=== PATIENT | male | born 1975 | race Caucasian/White ===

== ENCOUNTER 2016-07-10 11:36 | Emergency (ER) | payer OTHER ==
[~2016-07-10] VITALS: Ht 182.9 cm; Wt 82.6 kg
[~2016-07-10 11:36] MED LIST: INSDGI SC; LSN25 PO; METF-384 PO; NRN400 PO; SIMV-151 PO; ZLF/100 PO
[2016-07-10 11:40] VITALS: BP 129/83; PULSE 96; TEMP 36.7; O2SAT 97; Ht 182.9 cm; Wt 82.6 kg
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
== END 2016-07-10 13:07 | disposition home or self-care (01) ==
LOC: C.EDB 11:37 → C.EDD 13:07
DX: T20.012A Burn of unspecified degree of left ear [any part, except ear drum], initial encounter (principal); X58.XXXA Exposure to other specified factors, initial encounter; I10 Essential (primary) hypertension; E11.9 Type 2 diabetes mellitus without complications; E78.00 Pure hypercholesterolemia, unspecified; F17.200 Nicotine dependence, unspecified, uncomplicated; J45.909 Unspecified asthma, uncomplicated; Z87.442 Personal history of urinary calculi; Z79.4 Long term (current) use of insulin; Z79.84 Long term (current) use of oral hypoglycemic drugs; Z79.899 Other long term (current) drug therapy; Z83.3 Family history of diabetes mellitus; Z82.49 Family history of ischemic heart disease and other diseases of the circulatory system; Z84.1 Family history of disorders of kidney and ureter

== ENCOUNTER 2016-12-16 08:47 | Emergency (ER) | payer OTHER ==
[~2016-12-16] VITALS: Ht 182.9 cm; Wt 75.7 kg
[2016-12-16 08:59] VITALS: TEMP 36.6; Ht 182.9 cm; Wt 75.7 kg
[2016-12-16] MEDS ORDERED: DICLOFENAC PO (09:21)
[2016-12-16] MEDS ORDERED: CYM/30 PO (09:21)
[2016-12-16] MEDS ORDERED: PROPARACAINE HCL 0.5% OP SOLN 15 ML BTL ONE (09:29)
[2016-12-16] MEDS ORDERED: CIPR0.3S OP (09:40)
--- NOTE | 2016-12-16 09:41 | EMERGENCY ROOM VISIT NOTE ---
ED Visit Note First contact with patient: 09:23 CHIEF COMPLAINT: Eye injury HISTORY OF PRESENT ILLNESS: This patient sustained an eye injury today when he woke Middle of the night and scratched his eye and since then has had a foreign body sensation. Since then there has been a constant moderate pain and irritation, redness and tearing in the eye. There is a mild blurring of vision at times and light bothers the eye. The vision has not been decreased over all. REVIEW OF SYSTEMS: Head: No headache, injury or neck pain. Neck: No pain, stiffness, or swelling. Neurological: No headache, new changes in mental status, vertigo, focal weakness, numbness. PMH: The patient has a history of diabetes and uses insulin. SOCIAL HISTORY: Patient lives at home. PHYSICAL EXAM: Vital Signs: Reviewed Nurse's notes. GENERAL: This is a healthy- appearing person who is uncomfortable from the eye problem. The pupils are round, equal, and react to light. EOMs are full. There is discharge of clear tears from the injured eye which is injected. There is a foreign body noted under the eyelid after inversion and it was easily removed with a cotton swab . No foreign body was seen embedded in the cornea. The cornea was clear and no hyphema was seen. Fluorescein uptake was observed with ultraviolet light and reveals very superficial punctate uptake but no significant abrasion. I did remove a foreign body from beneath the eyelid. I also removed what appeared to be a cat hair from the eye. The patient stated his symptoms resolved after these foreign bodies were removed. There is a very superficial punctate uptake of the fluorescein and he'll be placed on Ciloxan drops to help prevent infection. He should return to the ER with any worsening symptoms. Otherwise, he should recheck with his family doctor or eye doctor in 24 hours. Current/Historical Medications Scheduled Ciprofloxacin Hcl (Ophth) (Ciloxan Oph), 1 DROP OP Q4H Duloxetine HCl (Cymbalta), 30 MG PO DAILY Gabapentin (Gabapentin), 400 MG PO TID Insulin Glargine (Lantus), 45 UNITS SC QAM Lisinopril (Lisinopril), 2.5 MG PO DAILY Metformin Hcl (Glucophage), 1,000 MG PO BID Sertraline HCl (Sertraline HCl), 100 MG PO DAILY Simvastatin (Simvastatin), 20 MG PO QPM [Diclofenac], 1 TAB PO BID Allergies Coded Allergies: No Known Allergies (Unverified , 12/16/16) Vital Signs Date Time Temp Pulse Resp B/P (MAP) Pulse Ox O2 Delivery O2 Flow Rate FiO2 12/16/16 10:19 73 16 109/71 100 12/16/16 08:59 36.6 81 18 99/68 99 Room Air Departure Information Impression Primary Impression: Foreign body in eye Additional Impression: Corneal abrasion Dispostion Home / Self-Care Condition GOOD Prescriptions Ciprofloxacin Hcl (Ophth) (CILOXAN OPH) 0.3 % Carmen 1 DROP OP Q4H for 5 Days, #1 BTL Prov: Susanna Orellana PA-C 12/16/16 Referrals Harriet Conner D.O. (PCP) Tremayne Ramos M.D. Forms WORK / SCHOOL INSTRUCTIONS, HOME CARE DOCUMENTATION FORM, IMPORTANT VISIT INFORMATION Patient Instructions ED Eye Injury Corneal Abrasion, [facility] Additional Instructions Use Ciloxan two drops in eye every two hours while awake for two days; then two drops every four hours while awake for three days. Use Ibuprofen 600 mg every 6 hours as needed for pain. Return to the ED or see your family doctor or eye doctor in 24-48 hours for a recheck. Return to the ED for increasing pain or changes in vision. Problem Qualifiers Primary Impression: Foreign body in eye Encounter type: initial encounter Laterality: right Qualified Codes: T15.91XA - Foreign body on external eye, part unspecified, right eye, initial encounter Additional Impression: Corneal abrasion Encounter type: initial encounter Laterality: right Qualified Codes: S05.01XA - Injury of conjunctiva and corneal abrasion without foreign body, right eye, initial encounter
[2016-12-16 10:19] VITALS: BP 109/71; PULSE 73; O2SAT 100
== END 2016-12-16 10:20 | disposition home or self-care (01) ==
LOC: C.EDB 08:48
DX: T15.91XA Foreign body on external eye, part unspecified, right eye, initial encounter (principal); S05.01XA Injury of conjunctiva and corneal abrasion without foreign body, right eye, initial encounter; X58.XXXA Exposure to other specified factors, initial encounter; E11.9 Type 2 diabetes mellitus without complications; Z79.4 Long term (current) use of insulin; Z79.84 Long term (current) use of oral hypoglycemic drugs

== ENCOUNTER 2016-12-21 16:04 | Emergency (ER) | payer OTHER ==
[~2016-12-21] VITALS: Ht 182.9 cm; Wt 77.0 kg
[~2016-12-21 16:04] MED LIST changes: +CIPR0.3S OP; +CYM/30 PO; +DICLOFENAC PO
[2016-12-21 16:14] VITALS: TEMP 36.9; Ht 182.9 cm; Wt 77.0 kg
[2016-12-21] MEDS ORDERED: XYLOCAINE 1%/SOD BICARB 20 ML VIAL INFIL ONE (16:30)
--- NOTE | 2016-12-21 16:41 | EMERGENCY ROOM VISIT NOTE ---
ED Visit Note First contact with patient: 16:24 CHIEF COMPLAINT: Infection of the low back HISTORY OF PRESENT ILLNESS: This 41-year-old male patient presents to the emergency department ambulatory after they noticed a hard, red, tender area to the low back. It is slowly getting larger, more painful and tender. No fever, chills, or loss of appetite. There has been drainage from the area. There was no injury to the area preceding the infection. They rate the pain as sharp and 3/10. Tetanus shot is up to date. They have tried squeezing the area. The patient is a diabetic. The patient has no history of subcutaneous abscesses. REVIEW OF SYSTEMS: A 6 system review of systems was completed with positives and pertinent negatives listed in the HPI. ALLERGIES: No known drug allergies MEDICATIONS: See nursing notes PMH: Diabetes, SOCIAL HISTORY: The patient lives locally. He is a smoker PHYSICAL EXAM: Vital Signs: Reviewed Nurse's notes, vital signs stable. GENERAL : 41-year-old male, no acute distress, non toxic in appearance, well-developed well-nourished. SKIN: There is an erythematous indurated area to the low back which measures about 1 cm in diameter. It is not fluctuant and there is a scabbed area in the center. There is a zone of inflammation around it but no lymphangitis. Capillary refill less than 2 seconds. MUSCULOSKELETAL: There is no limitation of the range of motion of the legs. EMERGENCY DEPARTMENT COURSE: I examined the patient. After saline and Betadine cleansing and 3 mL of 1% buffered lidocaine anesthesia, the abscess was incised with a number 15 scalpel blade. The scab area was removed. A very small pustule and a small amount of purulent material was removed with pressure. A swab was obtained for culture. There was no deep abscess pocket. The area was cleaned with sterile saline and dressed with bacitracin and a bulky bandage. The patient tolerated the procedure well. The patient has an open area to the skin of the low back. There was a narcotic and scabbed area in the center. This could potentially represent a MRSA skin infection. Less likely it could represent a brown recluse spider bite or potentially the area of a tick bite. The patient will be placed on doxycycline and Keflex. He should have the area rechecked in 24-48 hours. He should return with any worsening redness, swelling, warmth, drainage or worsening area of necrosis. The patient was discharged home in stable condition. Current/Historical Medications Scheduled Cephalexin Monohydrate (Keflex), 500 MG PO TID Ciprofloxacin Hcl (Ophth) (Ciloxan Oph), 1 DROP OP Q4H Doxycycline (Monohydrate) (Doxycycline Monohydrate), 100 MG PO BID Duloxetine HCl (Cymbalta), 30 MG PO DAILY Gabapentin (Gabapentin), 400 MG PO TID Insulin Glargine (Lantus), 45 UNITS SC QAM Lisinopril (Lisinopril), 2.5 MG PO DAILY Metformin Hcl (Glucophage), 1,000 MG PO BID Sertraline HCl (Sertraline HCl), 100 MG PO DAILY Simvastatin (Simvastatin), 20 MG PO QPM [Diclofenac], 1 TAB PO BID Allergies Coded Allergies: No Known Allergies (Unverified , 12/21/16) Vital Signs Date Time Temp Pulse Resp B/P (MAP) Pulse Ox O2 Delivery O2 Flow Rate FiO2 12/21/16 17:35 88 17 121/63 96 12/21/16 16:14 36.9 92 18 117/73 98 Room Air Medications Administered Medications (Trade) Dose Ordered Sig/Gail Route Start Time Stop Time Status Last Admin Dose Admin Lidocaine HCl (Buffered Lidocaine 1% Inj) 20 ml NOW ONCE INFIL 12/21/16 16:30 12/21/16 16:31 DC 12/21/16 16:30 20 ML Departure Information Impression Primary Impression: Abscess Dispostion Home / Self-Care Condition GOOD Prescriptions Cephalexin Monohydrate (Keflex) 500 Mg Cap 500 MG PO TID for 10 Days, #30 CAP Prov: Susanna Orellana PA-C 12/21/16 Doxycycline (Monohydrate) (DOXYCYCLINE MONOHYDRATE) 100 Mg Tab 100 MG PO BID for 10 Days, #20 CAP Prov: Susanna Orellana PA-C 12/21/16 Referrals Harriet Conner D.O. (PCP) Patient Instructions Drainage Abscess, My [facility] Additional Instructions Keep the area clean and dry Antibiotics as prescribed until finished Return with worsening redness, swelling, worsening necrosis or generalized worsening symptoms. Otherwise, follow up with your family doctor in 24-48 hours for a recheck.
[2016-12-21] MEDS ORDERED: DOXY100T17 PO (17:21)
[2016-12-21] MEDS ORDERED: CEPH500C PO (17:21)
[2016-12-21 17:35] VITALS: BP 121/63; PULSE 88; O2SAT 96
== END 2016-12-21 17:42 | disposition home or self-care (01) ==
LOC: C.EDB 16:05 → C.EDD 17:42
DX: L02.212 Cutaneous abscess of back [any part, except buttock and flank] (principal); E11.9 Type 2 diabetes mellitus without complications; F17.200 Nicotine dependence, unspecified, uncomplicated; Z79.4 Long term (current) use of insulin; Z79.84 Long term (current) use of oral hypoglycemic drugs; Z79.899 Other long term (current) drug therapy

== ENCOUNTER 2017-07-28 16:38 | Emergency (ER) | payer OTHER ==
[~2017-07-28] VITALS: Ht 182.9 cm; Wt 76.2 kg
[~2017-07-28 16:38] MED LIST changes: -CIPR0.3S OP; +DOXY100T17 PO
[2017-07-28 16:55] VITALS: TEMP 36.8; Ht 182.9 cm; Wt 76.2 kg
[2017-07-28] MEDS ORDERED: XYLOCAINE 1%/SOD BICARB 20 ML VIAL INFIL ONE (17:15)
[2017-07-28] MEDS ORDERED: DICL1TAB5 PO (17:22)
[2017-07-28] MEDS ORDERED: TRAZ50TA35 PO (17:22)
--- NOTE | 2017-07-28 18:12 | DIAGNOSTIC IMAGING REPORT ---
R HAND MIN 3 VIEWS ROUTINE HISTORY: 41 years-old Male right hand injury, laceration acute right hand pain status post trauma COMPARISON: None available TECHNIQUE: 3 views of the right hand FINDINGS: There is no acute fracture, subluxation or significant degenerative changes identified. No opaque foreign body identified. IMPRESSION: 1. No acute fracture or subluxation. 2. No opaque foreign body. The above report was generated using voice recognition software. It may contain grammatical, syntax or spelling errors. Electronically signed by: David Gibbs M.D. 07/28/2017 6:10 PM Dictated Date/Time: 07/28/2017 6:08 PM
[2017-07-28] MEDS ORDERED: ACETAMINOPHEN 500 MG TAB PO STA (18:18)
[2017-07-28] MEDS ORDERED: CEPH500C PO (19:11)
--- NOTE | 2017-07-28 19:12 | EMERGENCY ROOM VISIT NOTE ---
ED Visit Note First contact with patient: 16:59 CHIEF COMPLAINT: Hand laceration HISTORY OF PRESENT ILLNESS: This 41-year-old male patient presents to the emergency department ambulatory after cutting the right hand while using a table saw today. The patient states that the saw kicked back and cut his hand. The bleeding has stopped. Denies weakness or numbness of the hand or fingers. The patient rates the pain as sharp and and 9/10. The patient denies any other injuries. The patient's Tetanus shot is up to date. REVIEW OF SYSTEMS: A 6 system review of systems was completed with positives and pertinent negatives listed in the HPI. ALLERGIES: No known drug allergies MEDICATIONS: See med list PMH: Diabetes, hyperlipidemia, hypertension SOCIAL HISTORY: The patient lives locally with family. He is a smoker. PHYSICAL EXAM: Vital Signs: Reviewed Nurse's notes, vital signs stable. GENERAL : This is a 41-year-old male, in no acute distress, well-developed, well- nourished. SKIN: There is a 4 cm long Y-shaped laceration on the palmar aspect of the right hand, just proximal to the thumb. The edges gape apart with traction. There is no foreign material in the wound and it looks clean. There is no active bleeding. No deep structures such as tendons, bones, or significant blood vessels are seen in the base of the wound. There is a small skin tear to the dorsal aspect of the right third finger. Normal strength and movement of the fingers and wrist. Capillary refill less than 2 seconds. Normal sensation to light and sharp touch. RADIOGRAPHIC FINDINGS: R HAND MIN 3 VIEWS ROUTINE HISTORY: 41 years-old Male right hand injury, laceration acute right hand pain status post trauma COMPARISON: None available TECHNIQUE: 3 views of the right hand FINDINGS: There is no acute fracture, subluxation or significant degenerative changes identified. No opaque foreign body identified. IMPRESSION: 1. No acute fracture or subluxation. 2. No opaque foreign body. EMERGENCY DEPARTMENT COURSE: I examined the patient. X-ray of the hand was obtained and read by radiology with no acute findings. Verbal consent was obtained to perform the procedure. Using sterile technique the wound was cleansed with Betadine. The area was sterilely draped. 4 ml of 1% buffered lidocaine was used to anesthetize the laceration on the hand. Once the patient was anesthetized, the wound was copiously irrigated under pressure with sterile saline. The wound was explored and was as described above. The laceration was repaired using 9 simple interrupted 4-0 nylon sutures with the wound edges being well approximated. The patient tolerated the procedure well. Hemostasis was achieved. The area was cleaned with sterile saline and dressed with bacitracin ointment and bandage. A metal finger splint was placed on the finger. The patient will be placed on antibiotics to prevent infection. The patient was discharged home in good condition. DIAGNOSIS: Hand laceration Current/Historical Medications Scheduled Cephalexin Monohydrate (Keflex), 500 MG PO TID Diclofenac (Voltaren ), 25 MG PO BID Duloxetine HCl (Cymbalta), 60 MG PO DAILY Gabapentin (Gabapentin), 400 MG PO TID Insulin Glargine (Lantus), 40 UNITS SC HS Lisinopril (Lisinopril), 2.5 MG PO DAILY Metformin Hcl (Glucophage), 1,000 MG PO BID Simvastatin (Simvastatin), 20 MG PO QPM Trazodone Hcl (Trazodone), 50 MG PO HS Allergies Coded Allergies: No Known Allergies (Unverified , 07/28/17) Vital Signs Date Time Temp Pulse Resp B/P (MAP) Pulse Ox O2 Delivery O2 Flow Rate FiO2 07/28/17 19:34 78 18 109/76 99 07/28/17 16:55 36.8 87 20 122/79 99 Room Air Medications Administered Medications (Trade) Dose Ordered Sig/Gail Route Start Time Stop Time Status Last Admin Dose Admin Acetaminophen (Tylenol Tab) 1,000 mg NOW STAT PO 07/28/17 18:18 07/28/17 18:19 DC 07/28/17 18:24 1,000 MG Departure Information Impression Primary Impression: Laceration of hand Dispostion Home / Self-Care Condition GOOD Prescriptions Cephalexin Monohydrate (Keflex) 500 Mg Cap 500 MG PO TID for 7 Days, #21 CAP Prov: Jenny Jara PA-C 07/28/17 Referrals Harriet Conner,[place] (PCP) Patient Instructions My [facility] Additional Instructions You have received 9 sutures on your hand. These sutures are NOT dissolvable and WILL need to be removed by a health care provider in 12-14 days. You can return to the Emergency Department or contact your Primary Care Provider to have the sutures removed. You were prescribed Keflex to be taken as prescribed. This is an antibiotic. All antibiotics have the potential to cause diarrhea. Stop this medication and contact a medical provider if you were to develop any significant adverse side effects including: wheezing, shortness of breath, passing out, vomiting, or a diffuse rash. Always take antibiotics as directed and COMPLETE the ENTIRE course regardless of the improvement of your symptoms. Proper wound care is essential for adequate wound healing and infection prevention. You can shower and clean the wound with soap and water. Do not scour over the wound, pat dry with a towel. Do not submerse the wound (i.e. bathe or dish wash) until the sutures have been removed. You can use an antibiotic ointment with a dressing over the wound for the next 3-4 days. After this time you may leave the wound dry and open to the air. If crust develops over the wound you can use a Q-tip to apply a 1:1 peroxide:water solution to clean the wound. Look for signs of infection of the wound including: increased pain, swelling, foul discharge, streaking, or increased temperature. If any of these are noticed you should return to the Emergency Department for further assessment and treatment. As with any laceration you may have received nerve damage to the surrounding tissues. This damage may or may not be permanent. You should keep the area covered with sunscreen for the first 6 months to 1 year when at risk for exposure to help minimize scarring. You can also use scar reducing creams or Vitamin E oil to help minimize scarring. For pain control, you can use the following [id number] medicines (if >12 yo): - Regular strength (325mg/tab) Tylenol (acetaminophen) 2 tabs every 4-6 hours as needed. Do not exceed 12 tablets in a 24 hour period. Avoid taking more than 4 grams (4000 mg) of Tylenol per day. This includes any other sources of acetaminophen you may take on a regular basis. - Regular strength (200 mg/tab) Advil (ibuprofen) 1-2 tabs every 4-6 hours as needed. Do not exceed a dose of 3200 mg per day. Return to the emergency department if your symptoms worsen despite treatment course outlined above. Problem Qualifiers Primary Impression: Laceration of hand Encounter type: initial encounter Foreign body presence: without foreign body Laterality: right Qualified Codes: S61.411A - Laceration without foreign body of right hand, initial encounter
[2017-07-28 19:34] VITALS: BP 109/76; PULSE 78; O2SAT 99
== END 2017-07-28 19:30 | disposition home or self-care (01) ==
LOC: C.EDB 16:39 → C.EDD 19:30
DX: S61.411A Laceration without foreign body of right hand, initial encounter (principal); W31.2XXA Contact with powered woodworking and forming machines, initial encounter; E11.9 Type 2 diabetes mellitus without complications; I10 Essential (primary) hypertension; E78.5 Hyperlipidemia, unspecified; Z79.4 Long term (current) use of insulin; Z79.84 Long term (current) use of oral hypoglycemic drugs

== ENCOUNTER 2017-11-15 09:49 | Emergency (ER) | payer OTHER ==
[~2017-11-15] VITALS: Ht 182.9 cm; Wt 74.1 kg
[~2017-11-15 09:49] MED LIST changes: +DICL1TAB5 PO; -DICLOFENAC PO; -DOXY100T17 PO; +TRAZ50TA35 PO; -ZLF/100 PO
[2017-11-15 09:51] VITALS: TEMP 36.8; Ht 182.9 cm; Wt 74.1 kg
[2017-11-15] MEDS ORDERED: [UNRECOGNIZED DRUG - CODE] PO (10:15)
[2017-11-15] MEDS ORDERED: LPT40 PO (10:15)
[2017-11-15] MEDS ORDERED: CYM60 PO (10:15)
[2017-11-15] MEDS ORDERED: NRN600 PO (10:15)
--- NOTE | 2017-11-15 11:31 | DIAGNOSTIC IMAGING REPORT ---
CT SCAN OF THE CERVICAL SPINE CLINICAL HISTORY: Head injury. COMPARISON STUDY: No priors. TECHNIQUE: CT scan of the cervical spine is performed from the skull base to the upper thoracic spine. Images are reviewed in the axial, sagittal, and coronal planes. IV contrast was not administered for this examination. A dose lowering technique was utilized adhering to the principles of ALARA. CT DOSE: 1210.99 mGycm FINDINGS: Skeletal structures: The skeletal structures are well mineralized. There is no evidence of fracture or subluxation involving the cervical spine. There is incomplete bony fusion of the posterior ring of C1, likely on a congenital basis. Vertebral body height and alignment are maintained. Anterior osteophytes are seen in the lower cervical region. There is straightening of the cervical lordosis. The odontoid process and lateral masses are intact. The atlantoaxial articulation is preserved noting productive degenerative change. The spinous processes appear intact. Intervertebral discs: There is mild disc space narrowing at C5-C6 and C6-C7. Central canal: Tiny posterior disc osteophyte complexes at C5-C6 and C6-C7 may contribute to mild acquired compromise of the central canal. Soft tissues: The prevertebral and paraspinous soft tissues are within normal limits. Calvarium: The visualized calvarium at the skull base appears intact. Brain parenchyma: Partially visualized brain parenchyma the skull base is within normal limits. Mastoids: The mastoid air cells are well pneumatized. Lung apices: Clear as visualized. IMPRESSION: There is no evidence of fracture or subluxation involving the cervical spine. Electronically signed by: Esdras Auguste M.D. 11/15/2017 11:30 AM Dictated Date/Time: 11/15/2017 11:27 AM
--- NOTE | 2017-11-15 11:33 | DIAGNOSTIC IMAGING REPORT ---
CT SCAN OF THE BRAIN WITHOUT IV CONTRAST CLINICAL HISTORY: Head injury. COMPARISON STUDY: No priors. TECHNIQUE: Unenhanced axial CT scan of the brain is performed from the vertex to the skull base. A dose lowering technique was utilized adhering to the principles of ALARA. FINDINGS: Brain parenchyma: The brain parenchyma is normal in appearance. There is no hemorrhage, mass effect, or evidence of acute territorial ischemia by CT criteria. Davenport-white matter is preserved. No extra-axial fluid collection is seen. Ventricles, sulci, cisterns: Normal in configuration. Intracranial vasculature: The visualized intracranial vasculature at the skull base is normal in appearance. Calvarium: There is no depressed calvarial fracture. Sinuses and mastoids: Mucosal thickening/retention cysts are noted in the maxillary antra. The remaining paranasal sinuses are clear. The mastoid air cells are well pneumatized. Orbits: The bony orbits are grossly intact. IMPRESSION: No acute intracranial abnormality. Electronically signed by: Esdras Auguste M.D. 11/15/2017 11:32 AM Dictated Date/Time: 11/15/2017 11:30 AM
--- NOTE | 2017-11-15 11:40 | DIAGNOSTIC IMAGING REPORT ---
LUMBAR SPINE 5 VIEWS CLINICAL HISTORY: Fall. Low back pain. FINDINGS: 5 views of the lumbar spine are correlated with CT scan of the lumbar spine dated 04/21/2016. The skeletal structures are well mineralized. There is no radiographic evidence of fracture or malalignment. Vertebral body height and alignment are maintained. The transverse and spinous processes are intact. There is no evidence of spondylolysis. The intervertebral disc spaces are well-maintained. The visualized bony pelvis appears intact. There is a nonobstructed abdominal bowel gas pattern. Moderate colonic fecal retention is observed. There is a nonobstructing right renal calculus. IMPRESSION: 1. There is no radiographic evidence of fracture or malalignment involving the lumbosacral spine. 2. Nonobstructing right renal calculus. Electronically signed by: Esdras Auguste M.D. 11/15/2017 11:39 AM Dictated Date/Time: 11/15/2017 11:38 AM
--- NOTE | 2017-11-15 12:18 | EMERGENCY ROOM VISIT NOTE ---
History First contact with patient: 10:00 Chief Complaint: BACK PAIN Stated Complaint: SHARP PAIN IN LOWER BACK FROM FALL,HEADACHE,NECK P History of Present Illness The patient is a 42 year old male who presents to the Emergency Room with complaints of a right-sided headache, neck pain and lower back pain. The patient reports that he was walking through his yard last night and experienced sudden onset of low back pain. The patient reports a history of back problems. The patient reports that the pain made him fall. The patient then recalls trying to get up and had significant discomfort. He then went to a picnic table and lay down on the picnic table to rest. The patient reports that he fell asleep, and woke up cold. He then went to the garage and fell asleep in the garage. The patient reports that his memory of last evening is a little foggy. His is concerned that he hit his head. The patient denies any illicit drug or alcohol use last night. The patient rates his headache a 7 out of 10. He rates his back pain a 5 out of 10. The patient reports pain radiating into the right thigh, which is typical with his back pain. He denies any paresthesias or numbness of the right lower extremity. He also denies any upper back pain, chest pain, shortness of breath, nausea, vomiting, visual disturbance or other injuries from his fall. Review of Systems 10 system review was performed and was negative except for pertinent positives and negatives as indicated in history of present illness Past Medical/Surgical History Medical Problems: (1) Calculus Of Kidney (2) Diab Batsheva Wo Compl, Type Ii Or Unspec Type, Not Uncntrld (3) Hypertension Nos (4) Pure Hypercholesterolem (5) Tobacco Use Disorder Family History Diabetes mellitus Heart disease Social History Smoking Status: Current Every Day Smoker Alcohol Use: occasionally Drug Use: none Marital Status: Housing Status: lives with family Occupation Status: unemployed Current/Historical Medications Scheduled Aspirin (Sm Aspirin Adult Low Stre), 81 MG PO DAILY Atorvastatin (Lipitor), 40 MG PO DAILY Diclofenac (Voltaren ), 25 MG PO BID Duloxetine HCl (Duloxetine HCl), 60 MG PO DAILY Gabapentin (Gabapentin), 600 MG PO TID Insulin Glargine (Lantus), 40 UNITS SC HS Lisinopril (Lisinopril), 2.5 MG PO DAILY Metformin Hcl (Glucophage), 1,000 MG PO BID Trazodone Hcl (Trazodone), 50 MG PO HS Physical Exam Vital Signs Date Time Temp Pulse Resp B/P (MAP) Pulse Ox O2 Delivery O2 Flow Rate FiO2 11/15/17 09:51 36.8 99 20 112/70 100 Room Air Physical Exam CONSTITUTIONAL: Healthy and well nourished. Alert and oriented X 3 with positive affect. GCS 15. HEENT: Normocephalic, atraumatic. Pupils equal, round and reactive. No hematoma, abrasions or lacerations. No subconjunctival hemorrhage, epistaxis, hemotympanum, raccoon's eyes or montez sign. OROPHARYNX: No dental trauma or intraoral lacerations. NECK: Patient has mild generalized discomfort to palpation of the neck. No focal tenderness of the central cervical spine. RESPIRATORY: Clear to auscultation bilaterally with no wheezing, crackles, rhonchi or stridor. CARDIOVASCULAR: Regular rate and rhythm with no murmurs, rubs or gallops. GASTROINTESTINAL: Bowel sounds present in all quadrants. Soft and nontender to palpation. MUSCULOSKELETAL: Examination shows mild generalized discomfort to palpation through the lower back. Pelvis stable with rock. Negative logroll. Negative straight leg raise. Pedal pulses are intact. INTEGUMENTARY: No rash or other significant dermatologic conditions noted. NEUROLOGIC: Cranial nerves II-XII grossly intact. No focal neurologic deficits noted. Negative pronator drift. Normal fast alternating hand movements. Medical Decision & Procedures ER Provider Diagnostic Interpretation: Noncontrast CT of the cervical spine does not show any acute fractures or subluxations. Radiologist reports were reviewed: CT SCAN OF THE CERVICAL SPINE CLINICAL HISTORY: Head injury. COMPARISON STUDY: No priors. TECHNIQUE: CT scan of the cervical spine is performed from the skull base to the upper thoracic spine. Images are reviewed in the axial, sagittal, and coronal planes. IV contrast was not administered for this examination. A dose lowering technique was utilized adhering to the principles of ALARA. CT DOSE: 1210.99 mGycm FINDINGS: Skeletal structures: The skeletal structures are well mineralized. There is no evidence of fracture or subluxation involving the cervical spine. There is incomplete bony fusion of the posterior ring of C1, likely on a congenital basis. Vertebral body height and alignment are maintained. Anterior osteophytes are seen in the lower cervical region. There is straightening of the cervical lordosis. The odontoid process and lateral masses are intact. The atlantoaxial articulation is preserved noting productive degenerative change. The spinous processes appear intact. Intervertebral discs: There is mild disc space narrowing at C5-C6 and C6-C7. Central canal: Tiny posterior disc osteophyte complexes at C5-C6 and C6-C7 may contribute to mild acquired compromise of the central canal. Soft tissues: The prevertebral and paraspinous soft tissues are within normal limits. Calvarium: The visualized calvarium at the skull base appears intact. Brain parenchyma: Partially visualized brain parenchyma the skull base is within normal limits. Mastoids: The mastoid air cells are well pneumatized. Lung apices: Clear as visualized. IMPRESSION: There is no evidence of fracture or subluxation involving the cervical spine. Noncontrast CT of the head does not show any intracranial bleed or fracture. Radiologist report is as follows: CT SCAN OF THE BRAIN WITHOUT IV CONTRAST CLINICAL HISTORY: Head injury. COMPARISON STUDY: No priors. TECHNIQUE: Unenhanced axial CT scan of the brain is performed from the vertex to the skull base. A dose lowering technique was utilized adhering to the principles of ALARA. FINDINGS: Brain parenchyma: The brain parenchyma is normal in appearance. There is no hemorrhage, mass effect, or evidence of acute territorial ischemia by CT criteria. Davenport-white matter is preserved. No extra-axial fluid collection is seen. Ventricles, sulci, cisterns: Normal in configuration. Intracranial vasculature: The visualized intracranial vasculature at the skull base is normal in appearance. Calvarium: There is no depressed calvarial fracture. Sinuses and mastoids: Mucosal thickening/retention cysts are noted in the maxillary antra. The remaining paranasal sinuses are clear. The mastoid air cells are well pneumatized. Orbits: The bony orbits are grossly intact. IMPRESSION: No acute intracranial abnormality. My interpretation of lumbar spine x-rays does not show any acute fractures or subluxation. Radiologist report is as follows: LUMBAR SPINE 5 VIEWS CLINICAL HISTORY: Fall. Low back pain. FINDINGS: 5 views of the lumbar spine are correlated with CT scan of the lumbar spine dated 04/21/2016. The skeletal structures are well mineralized. There is no radiographic evidence of fracture or malalignment. Vertebral body height and alignment are maintained. The transverse and spinous processes are intact. There is no evidence of spondylolysis. The intervertebral disc spaces are well-maintained. The visualized bony pelvis appears intact. There is a nonobstructed abdominal bowel gas pattern. Moderate colonic fecal retention is observed. There is a nonobstructing right renal calculus. IMPRESSION: 1. There is no radiographic evidence of fracture or malalignment involving the lumbosacral spine. 2. Nonobstructing right renal calculus. ED Course Patient history and physical exam were performed. Nurse's notes were reviewed. Vital signs were reviewed and were normal. The patient does not appear in any acute distress on initial exam. Because of the potential for loss of consciousness from this fall, and complaint of headache, I did suggest scanning of the head and neck to rule out acute injury. The patient was in agreement. Noncontrast CT of the head and cervical spine were normal. X-rays of the lumbar spine did not show any acute fractures or other acute findings. The patient was advised of his normal imaging studies. I did ask the patient if he checked his blood glucose levels this morning. He denies. I offered to check them prior to discharge, and the patient refused, stating that he was fine. I did encourage the patient to check his blood sugars over the next few days. He was instructed to follow-up with his PCP as needed for further management. A concussion handout was provided. He was encouraged to take ibuprofen and Tylenol as needed for pain. The patient voiced understanding of all discharge instructions, was happy with plan of care, and rated his overall discomfort a 4 out of 10 at the time of discharge. Medical Decision [place] Drug Monitoring Program Search Results: patient reviewed within database, no issues identified Medication Reconcilliation Current Medication List: was personally reviewed by pa Blood Pressure Screening Patient's blood pressure: Normal blood pressure Impression Primary Impression: Concussion Additional Impressions: Cervical strain Lumbar strain Status post fall Departure Information Referrals Harriet Conner D.O. (PCP) Patient Instructions My [facility] Problem Qualifiers Primary Impression: Concussion Encounter type: initial encounter Loss of consciousness presence/duration: with LOC of 30 min or less Qualified Codes: S06.0X1A - Concussion with loss of consciousness of 30 minutes or less, initial encounter Additional Impressions: Cervical strain Encounter type: initial encounter Qualified Codes: S16.1XXA - Strain of muscle, fascia and tendon at neck level, initial encounter Lumbar strain Encounter type: initial encounter Qualified Codes: S39.012A - Strain of muscle, fascia and tendon of lower back, initial encounter
[2017-11-15 12:36] VITALS: BP 122/64; PULSE 84; O2SAT 100
== END 2017-11-15 12:37 | disposition home or self-care (01) ==
LOC: C.EDB 09:50
DX: S06.0X1A Concussion with loss of consciousness of 30 minutes or less, initial encounter (principal); S16.1XXA Strain of muscle, fascia and tendon at neck level, initial encounter; S39.012A Strain of muscle, fascia and tendon of lower back, initial encounter; W19.XXXA Unspecified fall, initial encounter; Z87.442 Personal history of urinary calculi; E11.9 Type 2 diabetes mellitus without complications; I10 Essential (primary) hypertension; E78.00 Pure hypercholesterolemia, unspecified; F17.210 Nicotine dependence, cigarettes, uncomplicated; Z79.82 Long term (current) use of aspirin; Z79.4 Long term (current) use of insulin; Z79.84 Long term (current) use of oral hypoglycemic drugs; Z79.899 Other long term (current) drug therapy

== ENCOUNTER 2023-01-31 00:01 | Inpatient (IN) ==
[2023-01-31] MEDS ORDERED: ONDANSETRON INJ 2 MG/ML 2 ML VIAL ONE (00:16)
[2023-01-31] MEDS ORDERED: fentaNYL citrate PF 100 MCG/2 ML VIAL IV STA (00:24)
[2023-01-31] MEDS ORDERED: SODIUM CHLORIDE 0.9% 1000ML 1,000 ML IV ONE ×2 (00:29→01:29)
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
[2023-01-31 00:50] LABS: Basophils # (auto) 0.03 K/uL (0-0.2); Basophils % (auto) 0.3 %; Eosinophils # (auto) 0.26 K/uL (0-0.50); Eosinophils % (auto) 2.8 %; Hematocrit (blood only) 29.8 % (42.0-52.0); Hemoglobin 11.3 g/dl (14.0-18.0); Immature Granulocytes # (auto) 0.04 K/uL (0.01-0.20); Immature Granulocytes % (auto) 0.4 %; Lymphocytes # (auto) 2.09 K/uL (1.2-3.4); Lymphocytes % (auto) 22.7 %; Mean Corpuscular Hgb Conc 37.9 g/dL (32.0-36.0); Mean Corpuscular Volume 81.9 fL (80.0-100.0); Mean Platelet Volume 8.9 fL (9.4-12.4); Monocytes # (auto) 0.79 K/uL (0.11-0.59); Monocytes % (auto) 8.6 %; Neutrophils # (auto) 5.98 K/uL (1.40-6.50); Neutrophils % (auto) 65.2 %; Platelet Count 308 K/uL (130-400); RDW Coefficient of Variation 11.4 % (11.5-14.5); RDW Standard Deviation 33.6 fL (36.4-46.3); Red Blood Count 3.64 M/uL (4.70-6.10); White Blood Count 9.19 K/ul (4.8-10.8)
[2023-01-31] MEDS ORDERED: HYDROmorphone INJ 0.5 MG/0.5 ML SYR IV STA (00:57)
[2023-01-31 01:19] LABS: Albumin Globulin Ratio 1.5 (0.9-2); BUN Creatinine Ratio 12.1 (10-20); Bilirubin,Total 0.4 mg/dl (0.2-1.0); Calcium 8.1 mg/dl (8.6-10.3); Creatinine Clr Calc Pharmacy 64.9 ml/min; Est GFR (African American) 86.4 ml/min; Est GFR (Non-African American) 74.6 ml/min; Globulin 2.7 gm/dl (2.5-4.0); Magnesium 0.8 mg/dl (1.7-2.4); Potassium 3.7 mmol/L (3.5-5.1); Total Protein 6.7 gm/dl (6.0-8.3)
[2023-01-31] MEDS: MAGNESIUM SULFATE / D5W 1 GM/100 ML BAG IV SCH ×5 (01:38→12:58)
[2023-01-31] MEDS ORDERED: oxyCODONE HCL IR 5 MG TAB (IMMEDIATE RELEASE) PO PRN (03:49)
[2023-01-31] MEDS ORDERED: MoRPHine SULFATE 2 MG/ML CARP IV PRN (03:49)
[2023-01-31 04:09] LABS: Appearance Urine Clear (Clear); Bilirubin Urine Negative (Negative); Blood Urine Negative (Negative); Color Urine Yellow; Glucose Urine UA 1+ (Negative); Ketones Urine Negative (Negative); Leukocyte Esterase Urine Negative (Negative); Nitrite Urine Negative (Negative); Protein Urine Negative (Negative); Specific Gravity Urine 1.006 (1.000-1.030); Urobilinogen Urine Negative (Negative); pH Urine 6.5 (4.5-7.5)
[2023-01-31 04:26] LABS: Magnesium 1.3 mg/dl (1.7-2.4)
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
[2023-01-31 05:20] LABS: Reticulocyte % 1.3 % (0.5-2.0); Reticulocytes # 0.01 10^6/uL (0.02-0.10)
[2023-01-31 05:30] LABS: Folate (Folic Acid),Ser orPlas 8.44 ng/ml (>5.38)
[2023-01-31] MEDS ORDERED: PANTOprazole 40 MG in SYRINGE 0 ML IV STA (05:34)
[2023-01-31] MEDS ORDERED: GLUCOSE 10 TAB/TUBE PO PRN (05:51)
[2023-01-31] MEDS ORDERED: GLUCAGON FOR INJ 1 MG VIAL SQ PRN (05:51)
[2023-01-31] MEDS ORDERED: GLUCOSE 40% GEL 15 GM TUBE PO PRN (05:51)
[2023-01-31] MEDS ORDERED: ACETAMINOPHEN 325 MG TAB PO PRN (05:51)
[2023-01-31] MEDS ORDERED: DEXTROSE 50% 50 ML SYRINGE IV PRN (05:51)
[2023-01-31] MEDS ORDERED: PROMETHAZINE HCL 6.25 MG in SODIUM CHLORIDE 0.9% 50 ML IV PRN (05:51)
[2023-01-31] MEDS ORDERED: CARBOHYDRATES FOR HYPOGLYCEMIA PO PRN (05:51)
[2023-01-31] MEDS ORDERED: hydrOXYzine HCl 10 MG TAB PO PRN (05:51)
[2023-01-31] MEDS ORDERED: LANTUS PER UNIT CHARGE SQ SCH (05:51)
[2023-01-31] MEDS ORDERED: LEVOTHYROXINE SODIUM 50 MCG TABLET PO SCH (06:30)
[2023-01-31] MEDS: INSULIN ASPART PER UNIT CHARGE SC SCH ×2 (06:32→12:42)
[2023-01-31 06:38] LABS: Estimated Average Glucose 214 mg/dl; Hemoglobin A1C 9.1 % (4.5-5.6)
--- NOTE | 2023-01-31 07:55 | XRay Report ---
XR chest 1V portable CLINICAL HISTORY: hyponatremia COMPARISON STUDY: Chest CT October 22, 2020 and chest radiograph August 27, 2022. FINDINGS: Lung volumes are normal. Lungs are clear. No pulmonary nodules are identified however sensi tivity is diminished given radiographic technique. There is no pneumothorax or pleural effusion. Card iac size is normal. Mediastinal contours are normal. There is no evidence for pulmonary edema. Severa l old, healed left rib fractures are present IMPRESSION: No acute cardiopulmonary findings. ACT 112: Negative or not required by law. Electronically signed by: Manuel Nicholson M.D. 01/31/2023 7:54 AM
[2023-01-31] MEDS ORDERED: TRINTELLIX~ORDER AWAITING ACTION SCH (08:00)
[2023-01-31] MEDS: GABAPENTIN 600 MG TAB PO SCH ×2 (08:29→14:27)
[2023-01-31 08:48] LABS: Basophils # (auto) 0.03 K/uL (0-0.2); Basophils % (auto) 0.3 %; Eosinophils % (auto) 2.2 %; Hematocrit (blood only) 29.9 % (42.0-52.0); Hemoglobin 11.2 g/dl (14.0-18.0); Immature Granulocytes # (auto) 0.03 K/uL (0.01-0.20); Immature Granulocytes % (auto) 0.3 %; Lymphocytes # (auto) 1.22 K/uL (1.2-3.4); Lymphocytes % (auto) 13.1 %; Mean Corpuscular Hemoglobin 31.1 pg (25.0-34.0); Mean Corpuscular Hgb Conc 37.5 g/dL (32.0-36.0); Mean Corpuscular Volume 83.1 fL (80.0-100.0); Mean Platelet Volume 8.7 fL (9.4-12.4); Monocytes # (auto) 0.84 K/uL (0.11-0.59); Monocytes % (auto) 9.1 %; Neutrophils # (auto) 6.96 K/uL (1.40-6.50); Platelet Count 281 K/uL (130-400); RDW Coefficient of Variation 11.4 % (11.5-14.5); RDW Standard Deviation 34.6 fL (36.4-46.3); White Blood Count 9.28 K/ul (4.8-10.8)
[2023-01-31] MEDS ORDERED: lisinopril 5 MG TAB PO SCH (09:00)
[2023-01-31] MEDS ORDERED: busPIRone 15 MG TAB PO SCH (09:00)
[2023-01-31] MEDS ORDERED: CYANOCOBALAMIN (B-12) 500 MCG TABLET PO SCH (09:00)
[2023-01-31] MEDS ORDERED: OXcarbazepine 150 MG TABLET PO SCH ×2 (09:00)
[2023-01-31] MEDS ORDERED: ATORVASTATIN 40 MG TAB PO SCH (09:00)
[2023-01-31 09:08] LABS: BUN Creatinine Ratio 11.6 (10-20); Calcium 7.8 mg/dl (8.6-10.3); Creatinine Clr Calc Pharmacy 99.5 ml/min; Est GFR (Non-African American) 94.9 ml/min; Magnesium 1.2 mg/dl (1.7-2.4); Potassium 4.7 mmol/L (3.5-5.1)
[2023-01-31] MEDS ORDERED: SODIUM CHLORIDE 0.9% 1000ML 1,000 ML IV SCH (10:45)
[2023-01-31] MEDS ORDERED: MAGNESIUM OXIDE 400 MG TAB PO SCH (10:45)
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
[2023-01-31] MEDS ORDERED: traZODone HCL 50 MG TAB PO SCH (21:00)
--- NOTE | 2023-02-02 05:33 | Electrocardiogram Report ---
Test Reason : Blood Pressure : / mmHG Vent. Rate : 077 BPM Atrial Rate : 077 BPM P-R Int : 178 ms QRS Dur : 102 ms QT Int : 424 ms P-R-T Axes : 062 042 057 degrees QTc Int : 479 ms Normal sinus rhythm Cannot rule out Anterior infarct (cited on or before 31-JAN-2023) Abnormal ECG When compared with ECG of 27-AUG-2022 02:17, No significant change was found Confirmed by Bharat Newton [id number] on 02/02/2023 5:32:57 AM Referred By: REFERRED SELF Confirmed By:Bharat Newton
== END 2023-01-31 15:15 | disposition left against medical advice (07) | DRG 641 ==
LOC: ED 00:01 → SUATTDRO 04:42 → 2N 04:42

== ENCOUNTER 2024-04-16 16:46 | Inpatient (IN) ==
[2024-04-16 17:24] LABS: Basophils # (auto) 0.05 K/uL (0.00-0.20); Basophils % (auto) 0.5 %; Eosinophils # (auto) 0.09 K/uL (0.00-0.50); Eosinophils % (auto) 0.9 %; Hematocrit (blood only) 38.2 % (42.0-52.0); Hemoglobin 13.8 g/dl (14.0-18.0); Immature Granulocytes # (auto) 0.04 K/uL (0.01-0.20); Immature Granulocytes % (auto) 0.4 %; Mean Corpuscular Hemoglobin 29.7 pg (25.0-34.0); Mean Corpuscular Hgb Conc 36.1 g/dL (32.0-36.0); Mean Corpuscular Volume 82.3 fL (80.0-100.0); Mean Platelet Volume 9.3 fL (9.4-12.4); Neutrophils # (auto) 8.04 K/uL (1.40-6.50); Neutrophils % (auto) 80.2 %; Platelet Count 427 K/uL (130-400); RDW Standard Deviation 32.1 fL (36.4-46.3); Red Blood Count 4.64 M/uL (4.70-6.10); White Blood Count 10.02 K/ul (4.8-10.8)
[2024-04-16 17:33] LABS: Albumin Globulin Ratio 1.2 (0.9-2); Albumin Level 4.4 gm/dl (3.4-5.0); BUN Creatinine Ratio 15.2 (10-20); Bilirubin,Total 0.5 mg/dl (0.2-1.0); Calcium 9.7 mg/dl (8.6-10.3); Creatinine Clr Calc Pharmacy 50.3 ml/min; Globulin 3.7 gm/dl (2.5-4.0); Potassium 4.5 mmol/L (3.5-5.1); Total Protein 8.1 gm/dl (6.0-8.3)
[2024-04-16 17:37] LABS: Troponin I High Sensitivity 5.9 pg/ml (0-20)
[2024-04-16 17:47] LABS: Partial Thromboplastin Time 26 Seconds (21-31); Prothrombin Time 10.4 Seconds (9.0-12.0)
--- NOTE | 2024-04-16 17:52 | XRay Report ---
XR chest 1V not portable CLINICAL HISTORY: Chest pain, nonspecific TECHNIQUE: Single frontal radiograph of the chest was obtained. Comparison: Comparison is made to chest radiograph 02/24/2020 FINDINGS: No lines and tubes are seen. The cardiomediastinal silhouette is normal. The lungs are clear. No evid ence of pleural effusion or pneumothorax. IMPRESSION: No acute chest disease. ACT 112: Negative or not required by law. Electronically signed by: Arturo Ortega M.D. 04/16/2024 5:50 PM
[2024-04-16] MEDS ORDERED: NovoLIN-R INSULIN PER UNIT CHARGE SC STA (17:54)
--- NOTE | 2024-04-16 18:00 | Emergency Department Note ---
Impression & Plan Precordial chest pain, Hypomagnesemia, Hyponatremia, DKA (diabetic ketoacidosis), KIKE (acute kidney injury) ED Provider Note NAME: LEA PEREZ AGE: 48 SEX: M : 1975 ARRIVES VIA: Walk-In INFORMANT: [Patient] ED PROVIDER(S): [Esdras Boyle MD] CHIEF COMPLAINT: Chest pain HISTORY OF PRESENT ILLNESS: The patient is a 48-year-old male with a history of previous RI. 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 He had some subtle anterior chest pain. The patient was sweaty and nauseated. He was dizzy. He appeared pale. He was not short of breath. His symptoms lasted for maybe 30 minutes and now seem to have resolved. His boss referred him to the ER. The patient admits that he is not checking his blood sugar. He does take metformin as well as long-acting insulin. He is supposed to use some short acting insulin, but, has run out. The patient has noticed some increased thirst and urination. No cough or congestion. No fever. PMHx/PSHx/Social Hx: See Below PHYSICAL EXAM: GENERAL: Patient is in no acute distress. HEENT: No acute trauma, normocephalic atraumatic, mucous membranes moist, no nasal congestion. NECK: No stridor, no adenopathy, no meningismus, trachea is midline. LUNGS: Clear to auscultation bilaterally, no wheeze, no rhonchi, breath sounds equal. HEART: Without murmurs gallops or rubs, regular rate and rhythm. ABDOMEN: Soft, nontender, no peritonitis. EXTREMITIES: No cyanosis, full range of motion of all the joints without pain or difficulty. NEUROLOGIC: Oriented x 3, no acute motor or sensory deficits, no focal weakness. SKIN: No jaundice, no diaphoresis. DIFFERENTIAL DIAGNOSIS: RI, angina, musculoskeletal pain, dehydration, electrolyte imbalance, among others. EMERGENCY DEPARTMENT PROCEDURES: MEDICAL DECISION MAKING: There is no leukocytosis or concerning anemia. Platelet count slightly elevated at 427. No coagulopathy. VBG showed a very subtle acidosis. Renal panel testing showed a low sodium with a value of 122. There was some acute kidney injury with a creatinine of 1.8. Sugar was quite high at over 600. No worrisome liver enzyme elevation. ECG showed a sinus rhythm, no acute ischemia. Cardiac enzyme testing x 1 was not consistent with acute cardiac injury. Chest x-ray does not show mediastinal widening or pneumonia. On exam, patient was not toxic or febrile. He was mentating at baseline. The patient was aggressively managed given his findings. As his chest pain had resolved, no nitroglycerin was administered. Patient was given IV magnesium for the low magnesium value. He received a liter of IV saline for hydration. He was given 10 units of subcu insulin for what appears to be early DKA. The patient presents with discomfort across the chest and shoulders which certainly could be consistent with cardiac ischemia. He was found to be in early DKA with some acute kidney injury and some electrolyte disturbances. Admission is warranted. I did speak with the patient and case management, the on-call hospitalist was consulted. Prior/Outside records/notes reviewed: None ECG per my interpretation: Indication was chest pain. The ECG showed a normal sinus rhythm with a rate of 96. There is no acute ST elevation, no PVCs. The QTc is 459. Continuous Cardiac Monitoring per my interpretation: An order was placed for continuous cardiac monitoring. The monitor shows a rate of 94 with normal sinus rhythm. Imaging/x-ray results per my interpretation: Chest x-ray does not show mediastinal widening, pneumonia or pneumothorax. Chronic Medical/Social conditions affecting care: History of coronary disease, history of diabetes. Care/Management discussed with: Case management, the on-call hospitalist. Level of care consideration(s): After review of the information above and other included data: --I believe the patient requires escalation of care to admission Critical Care Note: I have personally spent 46 minutes of critical care time in the direct management of this patient. This includes bedside care, interpretation of diagnostic studies, and testing, discussion with consultants, patient, and family members, and other required patient management activities. This 46 minutes is in excess of all separately billable procedures. DISPOSITION: Admission Past Med/Surg History Problem List (Updated 04/17/24 @ 00:00 by Esdras Boyle MD) KIKE (acute kidney injury) (Acute) DKA (diabetic ketoacidosis) (Acute) Hyponatremia (Acute) Hypomagnesemia (Acute) Precordial chest pain (Acute) Tobacco use disorder Chest pain Pseudohyponatremia DKA (diabetic ketoacidosis) Hyponatremia Hypomagnesemia (Acute) Acute hyponatremia (Acute) Syncope (Acute) Vomiting (Acute) Second degree burn of left leg (Acute) Laceration of left middle finger w/o foreign body w/o damage to nail (Acute) Lumbar disc herniation Anxiety (Chronic) Lumbar facet joint syndrome (Chronic) Low back pain (Chronic) Medical History HLD (hyperlipidemia) Mood disorder Diabetes mellitus, type 2 Surgical History History of tooth extraction Social History Smoking Status: Current every day smoker Tobacco Type: Cigarettes Cigarettes Per Day: 1/2 pack/day; Second Hand Exposure: No; Do You Dip or Chew Tobacco: No; Hx Alcohol Use: Yes Alcohol type: beer and hard liquor Hx Substance Use: No Preferred Language: Tamazight Communication Ability: Effective Visual Impairment: No Limitations Hearing Ability: Normal 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 Beliefs That Will Affect Care: None marital status: Current Living Situation: Family current occupational status: employed Other Information That Helps Us Care for You: No Feels Safe at Home: Yes Safety Concerns: Feels Safe At This Time Assistive Devices: Glasses Allergies Allergies Allergy/AdvReac Type Severity Reaction Status Date / Time No Known Allergies Allergy Verified 05/24/23 10:07 Home Meds Home Medications Medication Instructions Recorded Confirmed aspirin 81 mg tablet,delayed 81 mg PO QAM 04/18/18 04/16/24 release (Adult Aspirin Regimen) atorvastatin 40 mg tablet (Lipitor) 40 mg PO QAM 04/18/18 04/16/24 gabapentin 600 mg tablet 600 mg PO TID 04/18/18 04/16/24 metformin 1,000 mg tablet 1,000 mg PO BID 04/18/18 04/16/24 levothyroxine 50 mcg tablet 50 mcg PO DAILYBB 08/27/22 04/16/24 cyanocobalamin (vitamin B-12) 1,000 mcg PO QAM 01/31/23 04/16/24 1,000 mcg tablet (Vitamin B-12) rizatriptan 10 mg tablet 10 mg PO DIRECTED PRN Migraine 01/31/23 04/16/24 Headache insulin glargine 100 unit/mL 15 unit subcut QAM 02/23/23 04/16/24 subcutaneous solution vit no.95-ferrous 1 tab PO DAILY 03/01/23 04/16/24 fumarate 28 mg-folic acid 800 mcg tablet () ibuprofen 800 mg tablet 800 mg PO BID PRN pain or fever 05/24/23 04/16/24 cyclobenzaprine 10 mg tablet 10 mg PO HS PRN Muscle Spasm 04/16/24 04/16/24 Results & Data (ED) Vital Signs Vital Signs - 24 hr 04/16/24 16:48 04/16/24 17:30 04/16/24 18:05 Temperature 36.5 C Temperature Source Temporal Artery Scan Pulse Rate 102 H 94 H 89 Pulse Rhythm Regular Respiratory Rate 20 Respiratory Effort / Characteristics Non-Labored Spontaneous Respiratory Depth Normal Blood Pressure 106/70 Blood Pressure Mean 82 Pulse Oximetry 97 99 Oxygen Delivery Method Room Air Sepsis Recent Fever Within 48 Hours No Sepsis New/Unexplained Change in Mental Status No Sepsis Action Taken by Nursing No Action Required Home Medications Current Medication List: was personally reviewed by me Laboratory Data Attestation: I reviewed the patient's lab results. 04/16/24 17:00 04/16/24 22:22 Lab Results 04/16/24 04/16/24 Range/Units 17:00 18:00 WBC 10.02 (4.8-10.8) K/ul RBC 4.64 L (4.70-6.10) M/uL Hgb 13.8 L (14.0-18.0) g/dl Hct 38.2 L (42.0-52.0) % MCV 82.3 (80.0-100.0) fL MCH 29.7 (25.0-34.0) pg MCHC 36.1 H (32.0-36.0) g/dL RDW Std Deviation 32.1 L (36.4-46.3) fL RDW Coeff of Andrei 11.0 L (11.5-14.5) % Plt Count 427 H (130-400) K/uL MPV 9.3 L (9.4-12.4) fL Immature Gran % (Auto) 0.4 % Neut % (Auto) 80.2 % Lymph % (Auto) 12.0 % [place] % (Auto) 6.0 % Eos % (Auto) 0.9 % Baso % (Auto) 0.5 % Neut # (Auto) 8.04 H (1.40-6.50) K/uL Lymph # (Auto) 1.20 (1.20-3.40) K/uL [place] # (Auto) 0.60 H (0.11-0.59) K/uL Eos # (Auto) 0.09 (0.00-0.50) K/uL Baso # (Auto) 0.05 (0.00-0.20) K/uL Immature Gran # (Auto) 0.04 (0.01-0.20) K/uL PT 10.4 (9.0-12.0) Seconds INR 1.0 (0.9-1.1) APTT 26 (21-31) Seconds PTT Ratio 1.0 VBG pH 7.35 L (7.36-7.41) VBG pCO2 37 L (38-50) mmHg VBG pO2 20 mmHg VBG HCO3 20 mmol/L VBG O2 Saturation < 60.0 % VBG Base Excess -4.7 mEq/L Sodium 122 L (136-145) mmol/L Potassium 4.5 (3.5-5.1) mmol/L Chloride 84 L (98-107) mmol/L Carbon Dioxide 18 L (21-32) mmol/L Anion Gap 20 H (3-11) BUN 28 H (6-23) mg/dl Creatinine 1.84 H (0.6-1.4) mg/dl Est Cr Clr Drug Dosing 50.3 ml/min eGFR 44.66 BUN/Creatinine Ratio 15.2 (10-20) Glucose 650 H* (70-99(Fasting)) mg/dl Calcium 9.7 (8.6-10.3) mg/dl Magnesium 1.4 L (1.7-2.4) mg/dl Total Bilirubin 0.5 (0.2-1.0) mg/dl AST 9 L (13-39) U/L ALT 7 (7-52) U/L Alkaline Phosphatase 123 H (34-104) U/L Troponin I High Sens 5.9 (0-20) pg/ml Total Protein 8.1 (6.0-8.3) gm/dl Albumin 4.4 (3.4-5.0) gm/dl Globulin 3.7 (2.5-4.0) gm/dl Albumin/Globulin Ratio 1.2 (0.9-2) Administered Medications Dextrose (Dextrose 50% 50 Ml Syringe) 25 - 50 ml IV UD PRN; Protocol PRN Reason: Hypoglycemia Protocol Stop: 05/16/24 18:29 Last Admin: 04/16/24 23:34 Dose: 25 ml Documented By: INES Gabapentin (Gabapentin 600 Mg Tab) 600 mg PO TID RAYMOND Stop: 05/16/24 20:59 Last Admin: 04/16/24 21:50 Dose: 600 mg Documented By: INES Heparin Sodium (Porcine) (Heparin Sod 5,000 Unit/0.5 Ml Vial) 5,000 units SQ Q8 RAYMOND Stop: 05/16/24 21:59 Last Admin: 04/16/24 22:32 Dose: 5,000 units Documented By: INES Insulin Human Regular 250 (units/ Sodium Chloride) 250 mls @ 3.5 mls/hr IV .Q24H RAYMOND; Protocol Stop: 05/16/24 18:29 Last Titration: 04/16/24 23:48 Dose: 2.1 units/hr, 2.1 mls/hr Documented By: INES Co-signed By: DAH Titration: 04/16/24 23:34 Dose: 0 units/hr, 0 mls/hr Documented By: INES Co-signed By: DAH Titration: 04/16/24 23:15 Dose: 0 units/hr, 0 mls/hr Documented By: INES Co-signed By: DAH Titration: 04/16/24 23:08 Dose: 0 units/hr, 0 mls/hr Documented By: INES Co-signed By: DAH Titration: 04/16/24 22:30 Dose: 3.5 units/hr, 3.5 mls/hr Documented By: INES Co-signed By: DAH Titration: 04/16/24 21:59 Dose: 0 units/hr, 0 mls/hr Documented By: INES Co-signed By: DAH Titration: 04/16/24 21:00 Dose: 5.8 units/hr, 5.8 mls/hr Documented By: INES Co-signed By: DAH Titration: 04/16/24 19:56 Dose: 5.8 units/hr, 5.8 mls/hr Documented By: GENIE Co-signed By: CARMELO Admin: 04/16/24 18:50 Dose: 7.2 units/hr, 7.2 mls/hr Documented By: JAMES Co-signed By: ROSITA Potassium Chloride/Dextrose/Sod Cl (D5w And 1/2nss + 20meq Kcl) 20 meq in 1,000 mls @ 125 mls/hr IV .Q8H RAYMOND Stop: 05/16/24 23:14 Last Admin: 04/16/24 23:16 Dose: 125 mls/hr Documented By: INES Insulin Aspart (Insulin Aspart Per Unit Charge) 0 units SC ACHS RAYMOND Stop: 05/16/24 20:59 Last Admin: 04/16/24 20:03 Dose: 10 units Documented By: GENIE Co-signed By: BAUTISTA Discontinued Medications Sodium Chloride (Nss) 1,000 mls @ 999 mls/hr IV .Q1H1M ONE Stop: 04/16/24 18:54 Last Infusion: 04/16/24 19:39 Dose: Infused Documented By: Admin: 04/16/24 18:38 Dose: 999 mls/hr Documented By: JAMES Magnesium Sulfate/Dextrose (Magnesium Sulfate / D5w) 1 gm in 100 mls @ 50 mls/hr IV Q2H RAYMODN Stop: 04/16/24 22:14 Last Infusion: 04/16/24 23:03 Dose: Infused Documented By: Admin: 04/16/24 20:53 Dose: 50 mls/hr Documented By: Infusion: 04/16/24 20:41 Dose: Infused Documented By: Admin: 04/16/24 18:38 Dose: 50 mls/hr Documented By: JAMES Parenteral Electrolytes (Plasma-Lyte A Ph 7.4) 1,000 mls @ 125 mls/hr IV .Q8H RAYMOND Stop: 05/16/24 18:29 Last Infusion: 04/16/24 21:53 Dose: Infused Documented By: Admin: 04/16/24 18:38 Dose: 125 mls/hr Documented By: JAMES Potassium Chloride/Sodium Chloride (1/2 Nss + 20meq Kcl 1000ml) 20 meq in 1,000 mls @ 125 mls/hr IV .Q8H RAYMOND Stop: 05/16/24 21:44 Last Infusion: 04/16/24 23:11 Dose: Infused Documented By: Admin: 04/16/24 22:17 Dose: 125 mls/hr Documented By: INES Insulin Human Regular (Novolin-R Bolus From Bag) 7 units IV ONE ONE Stop: 04/16/24 18:31 Last Admin: 04/16/24 18:51 Dose: 7 units Documented By: JAMES Co-signed By: ROSITA Lidocaine (Lidocaine 5% 1 Patch) 1 patch TD NOW STA Stop: 04/16/24 19:11 Last Admin: 04/16/24 19:36 Dose: Not Given Documented By: GENIE Nicotine (Nicotine 14 Mg/24 Hr Patch) 1 patch TD ONE ONE Stop: 04/16/24 19:31 Last Admin: 04/16/24 20:18 Dose: 1 patch Documented By: GENIE Imaging Data Radiologist's Impression: Chest X-Ray 04/16/24 16:48 XR chest 1V not portable CLINICAL HISTORY: Chest pain, nonspecific TECHNIQUE: Single frontal radiograph of the chest was obtained. Comparison: Comparison is made to chest radiograph 02/24/2020 FINDINGS: No lines and tubes are seen. The cardiomediastinal silhouette is normal. The lungs are clear. No evidence of pleural effusion or pneumothorax. IMPRESSION: No acute chest disease. ACT 112: Negative or not required by law. Electronically signed by: Arturo Ortega M.D. 04/16/2024 5:50 PM Discharge Plan Visit Data Chief Complaint: Chest Pain Stated Complaint: CHEST PAINS, SHOULDER AND NECK PAIN, SOB ED Provider: Esdras Boyle Discharge Problem: Precordial chest pain, Hypomagnesemia, Hyponatremia, DKA (diabetic ketoacidosis), KIKE (acute kidney injury) Patient Disposition: Admitted As Inpatient Condition: Serious Discharge Instructions Interventions: ED Discharge Assessment Last Done: 04/16/24 20:14 Discharge Problem: DKA (diabetic ketoacidosis) Qualifiers: Diabetes mellitus type: type 2 Diabetes mellitus complication detail: without coma Qualified Code(s): E11.10 - Type 2 diabetes mellitus with ketoacidosis without coma
[2024-04-16 18:08] LABS: Magnesium 1.4 mg/dl (1.7-2.4)
[2024-04-16] MEDS ORDERED: PHARMACY GLYCEMIC MGMT CONSULT PRN ×2 (18:14→18:21)
--- NOTE | 2024-04-16 18:14 | History & Physical Report ---
Date of Service April 16, 2024 Assessment & Plan (1) DKA (diabetic ketoacidosis): (2) Diabetes mellitus, type 2: Plan: This is a 48-year-old male with PMH of poorly controlled type 2 diabetes, diabetic peripheral neuropathy, acquired hypothyroidism, hyperlipidemia, degenerative disc disease of the lumbosacral spine, history of migraine headaches, bipolar depression, tobacco use and other medical problems listed below who presents with chest pain that developed while at work this afternoon and was found to have DKA. BSG 650 2/2 running out of lantus and testing strips 2 days ago H/o poorly controlled DM II, last a1c in [facility] 11.2 in Aug 2023- repeat in AM VBG pH 7.35, bicarb 18, anion gap 20 Glycemic consult - insulin drip, IV fluids, Q4 BMP, phos, mag NPO for now, resume diet once anion gap closes BSG downtrending, most recently 341 diabetic educator consulted (3) Hypomagnesemia: Plan: Mag 1.4, replaced. Monitor (4) Pseudohyponatremia: Plan: Na 122 corrects to 133 when accounting for BSG of 650 Continue to monitor (5) Chest pain: Plan: CP appears atypical in nature, suspect MSK cause as pain originated in neck/across upper back Although patient with significant risk factors for ACS given uncontrolled DM, HTN, HLD, ongoing tobacco use Troponin negative x 2 - continue to trend, monitor on tele overnight EKG with NSR with HR of 96. No acute ST elevation 2D echo given risk factors as above, recurrent CP (6) KIKE (acute kidney injury): Plan: Cr 1.84 (baseline ~1.1) in setting of dehydration Expect improvement with correction of BSG, fluid balance Monitor (7) HLD (hyperlipidemia): Plan: Continue statin (8) Tobacco use disorder: Plan: Smoking 10-20 cigarettes daily Nicotine patch ordered Encourage cessation DVT Ppx: SQ heparin Code status: FULL PCP: Itzel Dispo: Admitted to PCU Patient seen in collaboration with Dr. Queen. Please see addendum. I spent a total of 75 minutes coordinating, documenting, and providing care for this patient excluding time spent in the performance of separately billed services. History of Present Illness Chief Complaint: CP Primary Care Provider: Lela Robbins, This is a 48-year-old male with PMH of poorly controlled type 2 diabetes, diabetic peripheral neuropathy, acquired hypothyroidism, hyperlipidemia, degenerative disc disease of the lumbosacral spine, history of migraine headaches, bipolar depression, tobacco use and other medical problems listed below who presents with chest pain that developed while at work this afternoon. Patient states he was at work in normal state of health and then had aching, spasm-like pain across his back shoulder blades and neck with some radiation to the chest, although admittedly pain was worse across his back. This episode of pain lasted approx 20-30 minutes. Was also noted to be diaphoretic and nauseous at this time, so sent to ED for further evaluation. Upon arrival, noted to have blood glucose of 650. Ran out of test strips a few days ago as well as Lantus. Last took on Tuesday or Tuesday. States he has been taking metformin and NovoLog. Last hemoglobin A1c 11.2 in [facility] in August 2023. Smokes 10-0 cigarettes daily. No fever, chills, recent URI, palpitations, shortness of breath, nausea, vomiting, abdominal pain, dysuria, diarrhea or constipation. Allergies Allergy/AdvReac Type Severity Reaction Status Date / Time No Known Allergies Allergy Verified 05/24/23 10:07 Home Medications Medication Instructions Recorded Confirmed Type aspirin 81 mg tablet,delayed 81 mg PO QAM 04/18/18 04/16/24 History release (Adult Aspirin Regimen) atorvastatin 40 mg tablet (Lipitor) 40 mg PO QAM 04/18/18 04/16/24 History gabapentin 600 mg tablet 600 mg PO TID 04/18/18 04/16/24 History metformin 1,000 mg tablet 1,000 mg PO BID 04/18/18 04/16/24 History levothyroxine 50 mcg tablet 50 mcg PO DAILYBB 08/27/22 04/16/24 History cyanocobalamin (vitamin B-12) 1,000 mcg PO QAM 01/31/23 04/16/24 History 1,000 mcg tablet (Vitamin B-12) rizatriptan 10 mg tablet 10 mg PO DIRECTED PRN Migraine 01/31/23 04/16/24 History Headache insulin glargine 100 unit/mL 15 unit subcut QAM 02/23/23 04/16/24 History subcutaneous solution vit no.95-ferrous 1 tab PO DAILY 03/01/23 04/16/24 History fumarate 28 mg-folic acid 800 mcg tablet () ibuprofen 800 mg tablet 800 mg PO BID PRN pain or fever 05/24/23 04/16/24 History cyclobenzaprine 10 mg tablet 10 mg PO HS PRN Muscle Spasm 04/16/24 04/16/24 History Past Med/Surg History Problem List (Updated 04/16/24 @ 21:50 by Georgina Heller PA-C) Tobacco use disorder Chest pain Pseudohyponatremia DKA (diabetic ketoacidosis) Hyponatremia Hypomagnesemia (Acute) Acute hyponatremia (Acute) Syncope (Acute) Vomiting (Acute) Second degree burn of left leg (Acute) Laceration of left middle finger w/o foreign body w/o damage to nail (Acute) Lumbar disc herniation Anxiety (Chronic) Lumbar facet joint syndrome (Chronic) Low back pain (Chronic) Medical History (Updated 04/16/24 @ 21:50 by Georgina Heller PA-C) HLD (hyperlipidemia) Mood disorder Diabetes mellitus, type 2 Surgical History History of tooth extraction Social History Smoking Status: Current every day smoker Tobacco Type: Cigarettes Cigarettes Per Day: 1/2 pack/day; Second Hand Exposure: No; Do You Dip or Chew Tobacco: No; Hx Alcohol Use: Yes Alcohol type: beer and hard liquor Hx Substance Use: No Preferred Language: Micronesian Communication Ability: Effective Visual Impairment: No Limitations Hearing Ability: Normal Analysis Tester Required: No Beliefs That Will Affect Care: None marital status: Current Living Situation: Family current occupational status: employed Other Information That Helps Us Care for You: No Feels Safe at Home: Yes Safety Concerns: Feels Safe At This Time Assistive Devices: Glasses Review of Systems Review of Systems: At least ten systems reviewed and negative except as noted in the HPI. Physical Exam Physical Exam: General Appearance: WD/WN, vitals as above, NAD, sitting up in bed, pleasant, conversing easily Head: normocephalic, atraumatic Eyes: normal inspection, PERRL, conjunctivae normal, anicteric sclerae ENT: external ear and nose normal, dry mucous membranes of oropharynx Neck: normal visual inspection, trachea midline, no thyromegaly Respiratory: normal respiratory effort, lungs clear to auscultation, no wheeze, rales, rhonchi. No accessory muscle use Cardiovascular: regular rate, rhythm, normal peripheral pulses, no BLE edema. Vessels: no JVD Chest: normal inspection of chest Abdomen/GI: normal bowel sounds, soft, nontender, no hepatosplenomegaly Extremities/Musculoskeletal: no cyanosis or clubbing, extremities motor strength 5/5 Neurologic: PERRL, EOMI, accommodation nl, no face palsy, no dysarthria, CN's II-XI intact bilaterally and moves all extremities Psychiatric: A+Ox3, euthymic affect Skin: no rashes, normal color, warm/dry Results & Data Results & Data Vital Signs (Past 12 Hours) Vital Signs Temp Pulse Resp BP Pulse Ox O2 Del Method 04/16/24 18:05 89 99 Room Air 04/16/24 17:30 94 H 04/16/24 16:48 36.5 C 102 H 20 106/70 97 Laboratory Results Short CBC 04/16/24 Range/Units 17:00 WBC 10.02 (4.8-10.8) K/ul Hgb 13.8 L (14.0-18.0) g/dl Hct 38.2 L (42.0-52.0) % Plt Count 427 H (130-400) K/uL BMP 04/16/24 17:00 Sodium 122 L Potassium 4.5 Chloride 84 L Carbon Dioxide 18 L BUN 28 H Creatinine 1.84 H Glucose 650 H* Calcium 9.7 Liver Function 04/16/24 Range/Units 17:00 Total Bilirubin 0.5 (0.2-1.0) mg/dl AST 9 L (13-39) U/L ALT 7 (7-52) U/L Alkaline Phosphatase 123 H (34-104) U/L Albumin 4.4 (3.4-5.0) gm/dl Diagnostic Findings Chest X-Ray 04/16/24 16:48 XR chest 1V not portable CLINICAL HISTORY: Chest pain, nonspecific TECHNIQUE: Single frontal radiograph of the chest was obtained. Comparison: Comparison is made to chest radiograph 02/24/2020 FINDINGS: No lines and tubes are seen. The cardiomediastinal silhouette is normal. The lungs are clear. No evidence of pleural effusion or pneumothorax. IMPRESSION: No acute chest disease. ACT 112: Negative or not required by law. Electronically signed by: Arturo Ortega M.D. 04/16/2024 5:50 PM Supervising Physician Co-Signing Physician Notes 48-year-old male with PMH of diabetes, HLD, HTN, low back pain presented to the ED with complaint of chest pain which he describes pain across his chest with radiation to bilateral shoulder and neck, associated with nausea and sweating, lasted 20 to 30 minutes. Patient denies upper abdominal pain, denies vomiting. Reports use of high-volume urine but denies any increase in the volume of the urine or frequency of the urine. Patient reports not feeling well and reports poor appetite. Patient denies any pain or burning with passing urine, denies any changes in his bowel habits recently. Labs reviewed, pseudohyponatremia noted, acute kidney injury noted, magnesium of 1.4, troponin x 1 negative. Patient undergoing DKA protocol, glycemic pharmacy on board. DKA and acute kidney injury expected to improve with DKA protocol and IV fluids. NPO. Diet to be resumed when AG resolves atleast in 2 consecutive BMPs. Trend troponin x 3, echo, replete magnesium total of 2 g today. Exam: GENERAL: Alert and oriented x3. NAD, on RA. HEENT: No pallor, no icterus. Pupils equal, round and reactive to light. Oral mucosa moist. NECK: No JVD, no neck masses. HEART: S1 and S2 heard. Regular rate and rhythm. No murmur, no gallop. RESPIRATORY SYSTEM: Normal AP diameter. No accessory muscle use. No wheezing, no crackles. ABDOMEN: Soft, bowel sounds present, nontender, no distention. CENTRAL NERVOUS SYSTEM: No facial droop. Speech is clear. Obeys simple commands. Moves extremities. EXTREMITIES: No edema, no erythema seen. I have seen and examined the patient and have discussed the case with the provider above. I agree with the assessment and plan as stated. Time spent: 30 min
[2024-04-16 18:15] LABS: Base Excess VBG -4.7 mEq/L; HCO3 VBG 20 mmol/L; Oxygen Saturation VBG < 60.0 %; PCO2 VBG 37 mmHg (38-50); PO2 VBG 20 mmHg; pH VBG 7.35 (7.36-7.41)
[2024-04-16] MEDS ORDERED: MAGNESIUM SULFATE / D5W 1 GM/100 ML BAG IV SCH (18:20)
[2024-04-16] MEDS ORDERED: STAT IV Infusion **Titration per Protocol STA (18:21)
[2024-04-16] MEDS ORDERED: DKA GOAL RANGE 150-250 mg/dl ONE (18:21)
[2024-04-16] MEDS ORDERED: GLUCOSE 40% GEL 15 GM TUBE PO PRN (18:30)
[2024-04-16] MEDS ORDERED: PENDING D5 1/2NS+20mEq KCL IVF SCH (18:30)
[2024-04-16] MEDS ORDERED: GLUCAGON FOR INJ 1 MG VIAL SQ PRN (18:30)
[2024-04-16] MEDS ORDERED: GLUCOSE 10 TAB/TUBE PO PRN (18:30)
[2024-04-16] MEDS ORDERED: CARBOHYDRATES FOR HYPOGLYCEMIA PO PRN (18:30)
[2024-04-16] MEDS ORDERED: PENDING 1/2NSS+20mEq KCL IVF SCH (18:30)
[2024-04-16] MEDS: MAGNESIUM SULFATE / D5W 1 GM/100 ML BAG IV SCH (18:38)
[2024-04-16] MEDS: PLASMA-LYTE A 1,000 ML IV SCH (18:38)
[2024-04-16] MEDS: SODIUM CHLORIDE 0.9% 1,000 ML IV ONE (18:38)
[2024-04-16] MEDS: INSULIN REGULAR 250 UNITS in SODIUM CHLORIDE 0.9% 247.5 ML IV SCH (18:50)
[2024-04-16] MEDS: NovoLIN-R BOLUS FROM BAG IV ONE (18:51)
[2024-04-16] MEDS: LIDOCAINE 5% 1 PATCH TD STA (19:36)
[2024-04-16] MEDS: INSULIN ASPART PER UNIT CHARGE SC SCH (20:03)
[2024-04-16] MEDS: NICOTINE 14 MG/24 HR PATCH TD ONE (20:18)
[2024-04-16] MEDS ORDERED: POLYETHYLENE (MIRALAX) 17 GM PACK PO PRN (20:41)
[2024-04-16] MEDS ORDERED: CYCLOBENZAPRINE HCL 10 MG TAB PO PRN (20:41)
[2024-04-16] MEDS ORDERED: ACETAMINOPHEN 500 MG TAB PO PRN (20:41)
[2024-04-16] MEDS ORDERED: ONDANSETRON INJ 2 MG/ML 2 ML VIAL IV PRN (20:41)
[2024-04-16] MEDS ORDERED: INFLUENZA VACC TS2024-25(6m+)/PF (IIV3) 0.5mL Syr IM ONE (20:56)
[2024-04-16] MEDS: GABAPENTIN 600 MG TAB PO SCH (21:50)
[2024-04-16] MEDS: SODIUM CHLOR 0.45% + 20MEQ KCL 20 MEQ/1,000 ML BAG IV SCH (22:17)
[2024-04-16] MEDS: HEPARIN SOD 5,000 UNIT/0.5 ML VIAL SQ SCH (22:32)
[2024-04-16 22:59] LABS: BUN Creatinine Ratio 17.2 (10-20); Calcium 9.5 mg/dl (8.6-10.3); Creatinine Clr Calc Pharmacy 62.2 ml/min; Phosphorus 2.4 mg/dl (2.5-4.9); Potassium 3.7 mmol/L (3.5-5.1)
[2024-04-16 23:07] LABS: Troponin I High Sensitivity 6.1 pg/ml (0-20)
[2024-04-16] MEDS: D5W AND 1/2NSS + 20MEQ KCL 20 MEQ/1,000 ML BAG IV SCH (23:16)
[2024-04-16] MEDS: DEXTROSE 50% 50 ML SYRINGE IV PRN (23:34)
[2024-04-17 03:04] LABS: BUN Creatinine Ratio 17.6 (10-20); Calcium 9.1 mg/dl (8.6-10.3); Creatinine Clr Calc Pharmacy 71.7 ml/min; Magnesium 1.7 mg/dl (1.7-2.4); Potassium 3.4 mmol/L (3.5-5.1)
--- OUTSIDE RECORDS SUMMARY | 2024-04-17 03:58 | External Medical Summary | Summary of Care ---
Author Name Unknown Organization [facility] Address [address] [place] [address] Phone [phone] Care Team Providers Care Rod Cup Filler Name Role Phone Va Phillips DO Primary Care Provider [phone] Reason for Visit * Reason Onset Date Comments Medication Refill 02/29/2024 Encounter Details Date Type Department Care Team (Late st Contact Info) Description 02/29/2024 Refill Family Medicine [address] [phone] Va Phillips DO [address] [place], [place] [address] [id number] Type 2 diabetes mellitus with hemoglobin A1c goal of less than 7.0% ([facility]) Allergies No known active allergiesdocumented as of this encounter (statuses as of 03/02/2024) Medications Medication Sig Dispensed Refills Start Date End Date Status OXcarbazepine 150 MG Oral Tablet (Trileptal) TAKE ONE TABLET BY MOUTH IN THE MORNING AND TAKE ONE TABLET AT NIGHT IN ADDITION TO TRILEPTAL 300 MG. 60 Tablet 05/12/2022 Active FreeStyle Theresa 2 [place] DeviceIndications:T ype 2 diabetes mellitus with hemoglobin A1c goal of less than 7.0% ([facility]) Use as directed. 1 Each 08/02/2022 Active Rizatriptan Benzoate 10 MG Oral Tablet (Maxalt) TAKE 1 TABLET AT ONSET OF HEADACHE AND MAY REPEAT IN 2 HOURS IF NEEDED. MAX 2 TABS IN 24 HOURS 10 Tablet 10 12/30/2022 Active Magnesium Oxide -Mg Supplement 400 (240 Mg) MG Oral Tablet (Mag-Ox) TAKE 1 TABLET BY MOUTH TWICE A DAY FOR 10 DAYS. 01/31/2023 Active Silver sulfADIAZINE 1 % External Cream (Silvadene) Apply topically to affected area daily. Apply to burn. 400 g 1 02/09/2023 Active Vitamins 28-0.8 MG Oral Tablet Take 1 Tablet by mouth in the morning. 90 Tablet 1 02/11/2023 Active Aspirin 81 MG Oral Tablet ChewableIndications :Type 2 diabetes mellitus with hemoglobin A1c goal of less than 7.0% (HCC) Take 1 Tablet by mouth in the morning. with food.. 100 Tablet 5 02/25/2023 Active Repaglinide 2 MG Oral Tablet (Prandin)Indication s:Type 2 diabetes mellitus with hemoglobin A1c goal of less than 7.0% (HCC) Take 1 Tablet by mouth in the morning and 1 Tablet at noon and 1 Tablet in the evening. Take before meals. 90 Tablet 3 03/17/2023 Active Icarus Terrance Lancets 33GIndications:Type 2 diabetes mellitus with hemoglobin A1c goal of less than 7.0% (HCC) Use to check blood sugar up to 3 times daily. E11.9 300 Each 3 04/20/2023 Active Icarus Verio In Vitro Strip (Glucose Blood)Indications:T ype 2 diabetes mellitus with hemoglobin A1c goal of less than 7.0% (HCC) Use to check blood sugar up to 3 times daily. E11.9 300 Strip 3 04/20/2023 Active [employer]Touch Verio Reflect w/Device KitIndications:Type 2 diabetes mellitus with hemoglobin A1c goal of less than 7.0% (HCC) Use as directed. Use to check blood sugar up to 3 times daily. E11.9 1 Kit 04/20/2023 Active Gabapentin 600 MG Oral Tablet (Neurontin)Indicati ons:DDD (degenerative disc disease), lumbosacral TAKE 1 TABLET BY MOUTH THREE TIMES A DAY 90 Tablet 5 04/26/2023 Active Cyclobenzaprine HCl 10 MG Oral Tablet (Flexeril) Take 1 Tablet by mouth at bedtime as needed for Muscle spasms. 30 Tablet 05/12/2023 Active Lidocaine 5 % External Patch (Lidoderm) Place 1 Patch over 12 hours topically on the skin daily. 30 Patch 05/12/2023 Active Ibuprofen 800 MG Oral Tablet (Motrin) Take 1 Tablet by mouth in the morning and 1 Tablet at noon and 1 Tablet before bedtime. with food for pain. 30 Tablet 1 05/20/2023 Active Insulin Syringe 31G X 5/16" 0.5 MLIndications:Type 2 diabetes mellitus with hemoglobin A1c goal of less than 8.0% (HCC) Use to inject insulin once daily. 100 Each 3 09/08/2023 Active Glucose 4 GM Oral Tablet ChewableIndications :DM type 2, not at goal ([facility]) as directed for hypglycemia 30 Tablet 1 09/12/2023 Active Levothyroxine Sodium 50 MCG Oral Tablet (Levoxyl)Indication s:Acquired hypothyroidism Take 1 Tablet by mouth daily first thing in the morning. 90 Tablet 3 09/09/2023 Active FreeStyle Theresa 2 SensorIndications:T ype 2 diabetes mellitus with hemoglobin A1c goal of less than 7.0% ([facility]) Use as directed. Replace sensor every 14 days. 6 Each 3 09/09/2023 Active Insulin Glargine 100 UNIT/ML Subcutaneous Solution (Lantus) Inject 15 Units under the skin daily. 15 mL 3 01/13/2024 Active NovoLOG FlexPen 100 UNIT/ML Subcutaneous Solution Pen-injector (insulin aspart)Indications: Type 2 diabetes mellitus with hemoglobin A1c goal of less than 7.0% (HCC) Inject insulin with meals according to sliding scale, up to 12 units per meal 15 mL 3 02/29/2024 Active metFORMIN HCl 1000 MG Oral Tablet (Glucophage)Indicat ions:Type 2 diabetes mellitus with hemoglobin A1c goal of less than 7.0% (HCC) TAKE 1 TABLET BY MOUTH TWICE A DAY WITH FOOD 180 Tablet 1 03/02/2024 Active metFORMIN HCl 1000 MG Oral Tablet (Glucophage)Indicat ions:Type 2 diabetes mellitus with hemoglobin A1c goal of less than 7.0% (HCC) TAKE 1 TABLET BY MOUTH TWICE A DAY WITH FOOD 180 Tablet 3 09/09/2023 Discontinu ed(Refill) documented as of this encounter (statuses as of 03/02/2024) Active Problems Problem Noted Date Diagnosed Date Diabetic peripheral neuropathy 11/24/2022 Hyperlipidemia with target LDL less than 70 11/02 History of kidney stones 11/24/2022 Vitiligo 11/24/2022 Bipolar depression 11/24/2022 Overview: [facility]. Anxiety 11/24/2022 Hx of nonmelanoma skin cancer 05/04/2022 Overview: squamous cell carcinoma (L hand 01/22) Hearing loss, bilateral 09/17/2019 Tinnitus of both ears 09/06/2019 Migraine without aura and wi thout status migrainosus, not intractable 07/25/2019 Type 2 diabetes mellitus wit h hyperglycemia, with long-term current use of insulin 05/09/2019 Acquired hypothyroidism 01/18/2019 DDD (degenerative disc disease), lumbosacral Type 2 diabetes mellitus wit h hemoglobin A1c goal of less than 7.0% 05/01/2009 Overview: Per Diabetes Taxonomy. Tobacco use disorder documented as of this encounter (statuses as of 03/02/2024) Resolved Problems Problem Noted Date Diagnosed Date Resolved Date Pure hypercholesterolemia 01/18/2019 Syncope, cardiogenic 12/29/2017 020 Seizure-like activity 12/28/20172020 Calculus of ureter 03/02/2012 3 Type 2 diabetes mellitus wit h hemoglobin A1c goal of less than 7.0% 12/30/2008 05/01/2009 Overview: Per Diabetes Taxonomy. ICD-10 update of inactive term ADVANCE DIRECTIVE INFORMATION 05/16/2006 01/18/2019 Overview: No, Advance Directive brochure given to patient. Calculus of ureter 05/16/2006 7 documented as of this encounter (statuses as of 03/02/2024) Immunizations Name Administration Dates Next Due COVID-19 mRNA, LNP-s, No Pre serve, 2-Dose Series (Moderna) 11/19/2020,10/29/2020 COVID-19, MRNA-LNP, 23-24, P F, 25 MCG/0.25 mL, 6MO-11YRS, IM (MODERNA) 10/22/2020 COVID-19, mRNA, LNP-s, PF, B ooster, 100mcg/0.5mg (Moderna) 07/03/2021 H1N1 2009 Influenza, IM 06/24/2009 Hepatitis B, 20+ yrs 07/01/2014,01/24/2014,12/25 Hepb Rec., 3-antigen, Al(oh3 ), Adult, 10 Mg/ml, Im (PreHevBrio) 01/24/2014,12/25/2013 Pneumococcal Conjugate Vacci ne, 20-valent ([id number]) 11/24/2022 Pneumococcal Polysaccharide PPV23 (Pneumovax) 04/21/2021,03/12/2008 Seasonal Influenza Virus Vac cine, Unspecified Formulation 03/06/2019,03/23/2017,05/06/2016,03/22,03/14/2012,04/02/2011,03/18/2010 ,03/25/2009,04/15/2008,05/22/2007 Seasonal Influenza, PF, 6 M & above, IM , (FluLaval or Fluzone) 06/07/2023,03/16/2022,04/21/2021,03/06,03/23/2017 Seasonal Influenza, Quadriva lent, No Preserve, IM 05/06/2016 Seasonal Influenza, Trivalen t, (IIV3), with Preserv, (Fluzone) 03/22/2014,03/14/2012,04/02/2011,03/18,03/25/2009,04/15/2008,05/22/2007 TDAP (age 10 and older)(Boostrix) 06/09/2022,,07/23/2008 TDAP, Age 7 and older, IM (Adacel) 07/23/2008 documented as of this encounter Social History Tobacco Use Types Packs/Day Years Used Date Smoking Tobacco: Every Day Cigarettes 1 32 Started: 03/04/1987; Last attempted to quit: 03/04/2019 Smokeless Tobacco: Former Alcohol Use Standard Drinks/Week Comments Yes 10 (1 standard drink = 0.6 oz pu re alcohol) occassionally PHQ-2 Answer Date Recorded PHQ Adult Total Score 0 01/08/2022 Sex and Gender Information Value Date Recorded Sex Assigned at Not on file Gender Identity Not on file Sexual Orientation Not on file Job Start Date Occupation Industry Not on file Not on file Not on file documented as of this encounter Miscellaneous Notes * Telephone Encounter - Marisela Garcia RPh - 03/02/2024 7:24 AM EDTSigned Prescriptions: Disp Refills metFORMIN HCl 1000 MG Oral Tablet (Glucoph*180 Ta*1 Sig: TAKE 1 TABLET BY MOUTH TWICE A DAY WITH FOOD Authorizing Provider: VA PHILLIPS Ordering User: MARISELA GARCIA * Telephone Encounter - Rosana Howard digital associate media director - 02/29/2024 2:48 PM EDT Please reroute Rx to [facility] [address] [place] [address]. Pending Prescriptions: Disp Refills metFORMIN HCl 1000 MG Oral Tablet (Glucop*180 Ta*3 Sig: TAKE 1 TABLET BY MOUTH TWICE A DAY WITH FOOD Last Visit: 08/12/2023 (in office), Visit date not found (telemedicine) Visit date not found If no future appointments scheduled, and last appointment is greater than a year ago, please schedule patient for a follow-up appointment Last date the medication was ordered: 09/09/23 Patient Phone Numbers [employer] [phone] Labs: Lab Results Component Value Date/Time CREAT 1.1 05/31/2023 10:56 AM CREAT 1.72 (A) 06/01/2022 12:00 AM CREAT 1.3 (H) 03/07/2019 10:20 AM POTASSIUM 4.5 05/31/2023 10:56 AM POTASSIUM 4.7 06/01/2022 12:00 AM POTASSIUM 4.4 03/07/2019 10:20 AM TSH 1.87 08/12/2023 01:26 PM TSH 1.23 05/08/2020 09:06 AM LDL 63 05/31/2023 10:56 AM LDL 54 02/28/2019 08:20 AM LDL NOT APPLICABLE 02/28/2019 08:20 AM ALT 18 05/31/2023 10:56 AM ALT 15 03/07/2019 10:20 AM HGBA1C 11.2 (H) 08/12/2023 01:26 PM HGBA1C 8.1 (H) 07/23/2022 10:49 AM HGBA1C 7.0 (H) 05/08/2020 09:06 AM documented in this encounter Plan of Treatment Upcoming Encounters Date Type Department Care Team (Late st Contact Info) Description 05/07/2024 7:40 AM EST Office Visit Dermatology [address] [place] [address] Caroline Dinh PA-C [address] [place] [address] [place] [address] Health Maintenance Due Date Last Done Comments Cologuard 11/14/2020 Colonoscopy 11/14/2020 Colorectal Cancer Screening 11/14/2020 Fecal Occult Blood Test 11/14/2020 Sigmoidoscopy 11/14/2020 DISCUSS TOBACCO CESSATION (REFER TO SMARTSET #3291) 02/02/2023 02/02/2022 COVID-19 Vaccine ( season) 2023 07/03/2021, 11/19/2020, 10/29/2020, Additional history exists Diabetic Foot Exam 11/25/2023 11/24/2022, 1 07/08/2019, 02/20/2019, Additional history exists Albumin/Creatinine Ratio 02/10/2024 023, 02/02/2022, 11/10/2020, Additional history exists HbA1c 02/10/2024 08/12/2023, 05/05, 02/09/2023, Additional history exists Influenza Vaccine (FLU shot) (#1) 2024 06/07/2023, 03/16/2022, 04/21/2021, Additional history exists GFR 05/31/2024 05/31/2023, 02/02, 02/09/2023, Additional history exists Diabetic Eye Exam 08/03/2024 08/03/2023, , 02/09/2023, Additional history exists B-12 08/12/2024 08/12/2023, 0803/2023, 11/24/2022, Additional history exists TSH 08/12/2024 08/12/2023, 05/05, 02/09/2023, Additional history exists Lipid Panel 05/31/2028 05/31/2023, 1108/2021, 11/10/2020, Additional history exists DTap/Tdap Vaccines (5 - Td or Tdap) 06/09/2032 06/09/2022, 12/30/2016, 07/23/2008, Additional history exists Hepatitis B Vaccine Completed 07/01/2014, 01/24/2014, 12/25/2013 Pneumococcal Vaccine: Pediatrics (0 to 5 Years) and At-Risk Patients (6 to 64 Years) Completed 11/24/2022, 04/21/2021, 03/12/2008 HPV (Gardasil) Vaccine Aged Out No lo nger eligible based on patient's age to complete this topic MENINGOCOCCAL (MENACTRA/MENVEO) Aged Out No longer eligible based on patient's age to complete this topic documented as of this encounter Medical Devices Not on filedocumented as of this encounter Visit Diagnoses Diagnosis Type 2 diabetes mellitus with hemoglobin A1c goal of less than 7.0% (HCC) documented in this encounter Care Teams Rod Cup Filler Relationship Specialty Start Date End Date Va Phillips DO [address] [place] [address] [place] [address] PCP - General Internal Medicine 11/22/22 documented as of this encounter
--- OUTSIDE RECORDS SUMMARY | 2024-04-17 03:58 | External Medical Summary | Summary of Care ---
Author Name Unknown Organization [facility] Address [address] [facility] [place] [address] Phone [phone] Care Team Providers Care Anesthesiologist Attending Name Role Phone Va Phillips DO Primary Care Provider [phone] Reason for Visit * Reason Onset Date Comments Medication Refill 03/12/2024 Encounter Details Date Type Department Care Team (Late st Contact Info) Description 03/12/2024 Refill Family Medicine [address] [place] [phone] Va Phillips DO [address] [place] [address] [place], [place] [id number] DDD (degenerative disc disease), lumbosacral Allergies No known active allergiesdocumented as of this encounter (statuses as of 03/12/2024) Medications Medication Sig Dispensed Refills Start Date End Date Status OXcarbazepine 150 MG Oral Tablet (Trileptal) TAKE ONE TABLET BY MOUTH IN THE MORNING AND TAKE ONE TABLET AT NIGHT IN ADDITION TO TRILEPTAL 300 MG. 60 Tablet 2 Active FreeStyle Theresa 2 [place] DeviceIndications:Type 2 diabetes mellitus with hemoglobin A1c goal of less than 7.0% ([facility]) Use as directed. 1 Each 3 Active Rizatriptan Benzoate 10 MG Oral Tablet (Maxalt) TAKE 1 TABLET AT ONSET OF HEADACHE AND MAY REPEAT IN 2 HOURS IF NEEDED. MAX 2 TABS IN 24 HOURS 10 Tablet 10 3 Active Magnesium Oxide -Mg Supplement 400 (240 Mg) MG Oral Tablet (Mag-Ox) TAKE 1 TABLET BY MOUTH TWICE A DAY FOR 10 DAYS. 3 Active Silver sulfADIAZINE 1 % External Cream (Silvadene) Apply topically to affected area daily. Apply to burn. 400 g 1 3 Active Vitamins 28-0.8 MG Oral Tablet Take 1 Tablet by mouth in the morning. 90 Tablet 1 3 Active Aspirin 81 MG Oral Tablet ChewableIndications:Type 2 diabetes mellitus with hemoglobin A1c goal of less than 7.0% (HCC) Take 1 Tablet by mouth in the morning. with food.. 100 Tablet 5 3 Active Repaglinide 2 MG Oral Tablet (Prandin)Indications:Type 2 diabetes mellitus with hemoglobin A1c goal of less than 7.0% (HCC) Take 1 Tablet by mouth in the morning and 1 Tablet at noon and 1 Tablet in the evening. Take before meals. 90 Tablet 3 3 Active JumpSeatTouch [place]adis Lancets 33GIndications:Type 2 diabetes mellitus with hemoglobin A1c goal of less than 7.0% (HCC) Use to check blood sugar up to 3 times daily. E11.9 300 Each 3 3 Active JumpSeatTouch Verio In Vitro Strip (Glucose Blood)Indications:Type 2 diabetes mellitus with hemoglobin A1c goal of less than 7.0% (HCC) Use to check blood sugar up to 3 times daily. E11.9 300 Strip 3 3 Active OneTouch Verio Reflect w/Device KitIndications:Type 2 diabetes mellitus with hemoglobin A1c goal of less than 7.0% (HCC) Use as directed. Use to check blood sugar up to 3 times daily. E11.9 1 Kit 3 Active Cyclobenzaprine HCl 10 MG Oral Tablet (Flexeril) Take 1 Tablet by mouth at bedtime as needed for Muscle spasms. 30 Tablet 3 Active Lidocaine 5 % External Patch (Lidoderm) Place 1 Patch over 12 hours topically on the skin daily. 30 Patch 3 Active Ibuprofen 800 MG Oral Tablet (Motrin) Take 1 Tablet by mouth in the morning and 1 Tablet at noon and 1 Tablet before bedtime. with food for pain. 30 Tablet 1 3 Active Insulin Syringe 31G X 5/16" 0.5 MLIndications:Type 2 diabetes mellitus with hemoglobin A1c goal of less than 8.0% ([facility]) Use to inject insulin once daily. 100 Each 3 4 Active Glucose 4 GM Oral Tablet ChewableIndications:DM type 2, not at goal ([facility]) as directed for hypglycemia 30 Tablet 1 4 Active Levothyroxine Sodium 50 MCG Oral Tablet (Levoxyl)Indications:Acqu ired hypothyroidism Take 1 Tablet by mouth daily first thing in the morning. 90 Tablet 3 4 Active FreeStyle Theresa 2 SensorIndications:Type 2 diabetes mellitus with hemoglobin A1c goal of less than 7.0% ([facility]) Use as directed. Replace sensor every 14 days. 6 Each 3 4 Active Insulin Glargine 100 UNIT/ML Subcutaneous Solution (Lantus) Inject 15 Units under the skin daily. 15 mL 3 4 Active NovoLOG FlexPen 100 UNIT/ML Subcutaneous Solution Pen-injector (insulin aspart)Indications:Type 2 diabetes mellitus with hemoglobin A1c goal of less than 7.0% ([facility]) Inject insulin with meals according to sliding scale, up to 12 units per meal 15 mL 3 4 Active Atorvastatin Calcium 40 MG Oral Tablet (Lipitor)Indications:Type 2 diabetes mellitus with hemoglobin A1c goal of less than 7.0% (HCC),Pure hypercholesterolemia TAKE 1 TABLET BY MOUTH EVERY DAY IN THE MORNING 90 Tablet 1 4 Active BD Pen Needle Keeley U/F 32G X 4 MM (Insulin Pen Needle) Use with Novolog pens up to 3 times per day 300 Each 1 4 Active Gabapentin 600 MG Oral Tablet (Neurontin)Indications:DD D (degenerative disc disease), lumbosacral TAKE 1 TABLET BY MOUTH THREE TIMES A DAY 90 Tablet 5 4 Active metFORMIN HCl 1000 MG Oral Tablet (Glucophage)Indications:T ype 2 diabetes mellitus with hemoglobin A1c goal of less than 7.0% (HCC) TAKE 1 TABLET BY MOUTH TWICE A DAY WITH FOOD 180 Tablet 1 4 Active documented as of this encounter (statuses as of 03/12/2024) Active Problems Problem Noted Date Diagnosed Date Diabetic peripheral neuropathy 11/24/2022 Hyperlipidemia with target LDL less than 70 11/02 History of kidney stones 11/24/2022 Vitiligo 11/24/2022 Bipolar depression 11/24/2022 Overview: [facility]. Anxiety 11/24/2022 Hx of nonmelanoma skin [...] as of this encounter (statuses as of 03/12/2024) Resolved Problems Problem Noted Date Diagnosed Date [...] as of this encounter (statuses as of 03/12/2024) Immunizations Name Administration Dates Next Due COVID-19 mRNA, LNP-s, No Pre serve, 2-Dose Series (Moderna) 11/19/2020,10/29/2020 COVID-19, MRNA-LNP, 23-24, P F, 25 MCG/0.25 mL, 6MO-11YRS, IM (MODERNA) 10/22/2020 COVID-19, mRNA, LNP-s, PF, B ooster, 100mcg/0.5mg (Moderna) 07/03/2021 H1N1 2009 Influenza, IM 06/24/2009 Hepatitis B, 20+ yrs 07/01/2014,01/24/2014,12/25 Hepb Rec., 3-antigen, Al(oh3 ), Adult, 10 Mg/ml, Im (PreHevBrio) 01/24/2014,12/25/2013 Pneumococcal Conjugate Vacci ne, 20-valent ([id number]) 11/24/2022 Pneumococcal Polysaccharide PPV23 (Pneumovax) 04/21/2021,03/12/2008 Seasonal [...] encounter Miscellaneous Notes * Telephone Encounter - Va Phillips DO - 03/12/2024 12:41 PM EDTRefused Prescriptions: Disp Refills Gabapentin 600 MG Oral Tablet (Neurontin) 90 Tab*5 Sig: TAKE 1 TABLET BY MOUTH THREE TIMES A DAYRefused By: VA PHILLIPS for Refusal: Duplicate Request-- * Telephone Encounter - Janine Purdy RN - 03/12/2024 11:49 AM EDTPending Prescriptions: Disp Refills Gabapentin 600 MG Oral Tablet (Neurontin) 90 Tab*5 Sig: TAKE 1 TABLET BY MOUTH THREE TIMES A DAY * Telephone Encounter - Kate Doll OSA - 03/12/2024 9:52 AM EDT Did you pend patient's preferred pharmacy and medication before forwarding?yes Pharmacy: [facility] [address] [place] [address] [place] [address] Pending Prescriptions: Disp Refills Gabapentin 600 MG Oral Tablet (Neurontin) 90 Tab*5 Sig: TAKE 1 TABLET BY MOUTH THREE TIMES A DAY Last Visit: 08/12/2023 (in office), Visit date not found (telemedicine) Next Visit: Visit date not found If no future appointments scheduled, and last appointment is greater than a year ago, please schedule patient for a follow-up appointment Last date the medication was ordered: 03.02.2024 Is this request for a controlled substance?No Urine Drug Screen:No results found. However, due to the size of the patient record, not all encounters were searched. Please check Results Review for a complete set of results. Patient Phone Numbers Labs: Lab Results Component Value Date/Time CREAT [...] 05/07/2024 7:40 AM EST Office Visit Dermatology [address] [place] [address] Caroline Dinh PA-C [address] [place] [address] [place] [address] Health Maintenance Due Date Last Done Comments Cologuard 11/14/2020 Colonoscopy 11/14/2020 Colorectal Cancer Screening 11/14/2020 Fecal Occult Blood Test 11/14/2020 Sigmoidoscopy 11/14/2020 DISCUSS TOBACCO CESSATION (REFER TO SMARTSET #3291) 02/02/2023 02/02/2022 Diabetic Foot Exam 11/25/2023 11/24/2022, 1 07/08/2019, 02/20/2019, Additional history exists Albumin/Creatinine Ratio 02/10/2024 023, 02/02/2022, 11/10/2020, Additional history exists HbA1c 02/10/2024 08/12/2023, 05/05, 02/09/2023, Additional history exists COVID-19 Vaccine ( season) 2024 07/03/2021, 11/19/2020, 10/29/2020, Additional history exists Influenza Vaccine (FLU shot) (#1) 2024 06/07/2023, 03/16/2022, 04/21/2021, Additional history exists GFR 05/31/2024 05/31/2023, 02/02, 02/09/2023, Additional history exists Diabetic Eye Exam 08/03/2024 08/03/2023, , 02/09/2023, Additional history exists B-12 08/12/2024 08/12/2023, 08/03/2023, 11/24/2022, Additional history exists TSH 08/12/2024 08/12/2023, 05/05, 02/09/2023, Additional history exists Lipid Panel 05/31/2028 05/31/2023, 11/0 08/2021, 11/10/2020, Additional history exists DTap/Tdap Vaccines (5 [...] as of this encounter Visit Diagnoses Diagnosis DDD (degenerative disc disease), lumbosacral Degeneration of lumbar or lumbosacral intervertebral disc documented in this encounter Care Teams Anesthesiologist Attending Relationship Specialty Start Date End Date Va Phillips DO [address] [place] [address] [place] [address] PCP - General Internal Medicine 11/22/22 documented as of this encounter
--- OUTSIDE RECORDS SUMMARY | 2024-04-17 03:58 | External Medical Summary | Summary of Care ---
Author Name Unknown Organization [facility] Address [address] [facility] [place] [address] Phone [phone] Care Team Providers Care Pulmonologist Name Role Phone Va Phillisp DO Primary Care Provider [phone] Reason for Visit * Reason Onset Date Comments Medication Refill 02/29/2024 Encounter Details Date Type Department Care Team (Late st Contact Info) Description 02/29/2024 Refill Family Medicine [address] [place] [phone] Va Phillips DO [address] [place] [address] [place] [address] Type 2 diabetes mellitus with hemoglobin A1c goal of less than 7.0% ([facility]); Pure hypercholesterolemia; DDD (degenerative disc disease), lumbosacral Allergies No known active allergiesdocumented as of this encounter (statuses as of 03/02/2024) Medications Medication Sig Dispensed Refills Start Date End Date Status OXcarbazepine 150 MG Oral Tablet (Trileptal) TAKE ONE TABLET BY MOUTH IN THE MORNING AND TAKE ONE TABLET AT NIGHT IN ADDITION TO TRILEPTAL 300 MG. 60 Tablet 2 Active FreeStyle Theresa 2 Brooks DeviceIndications:Type 2 diabetes mellitus with hemoglobin A1c goal of less than 7.0% (HCC) Use as directed. 1 Each 3 Active [...] 3 Active Repaglinide 2 MG Oral Tablet (Prandin)Indications:Typ e 2 diabetes mellitus with hemoglobin A1c goal of less than 7.0% (HCC) Take 1 Tablet by mouth in the morning and 1 Tablet at noon and 1 Tablet in the evening. Take before meals. 90 Tablet 3 3 Active Tryoutsuch Delica Lancets 33GIndications:Type 2 diabetes mellitus with hemoglobin A1c goal of less than 7.0% (HCC) Use to check blood sugar up to 3 times daily. E11.9 300 Each 3 3 Active XunleiTouch Verio In Vitro Strip (Glucose Blood)Indications:Type 2 diabetes mellitus with hemoglobin A1c goal of less than 7.0% (HCC) Use to check blood sugar up to 3 times daily. E11.9 300 Strip 3 3 Active XunleiTouch Verio Reflect w/Device KitIndications:Type 2 diabetes mellitus [...] A1c goal of less than 8.0% ([facility]) Use to inject insulin once daily. 100 Each 3 4 Active Glucose 4 GM Oral Tablet ChewableIndications:DM type 2, not at goal ([facility]) as directed for hypglycemia 30 Tablet 1 4 Active Levothyroxine Sodium 50 MCG Oral Tablet (Levoxyl)Indications:Acq uired hypothyroidism Take 1 Tablet by mouth daily first thing in the morning. 90 Tablet 3 4 Active FreeStyle Theresa 2 SensorIndications:Type 2 diabetes mellitus with hemoglobin A1c goal of less than 7.0% ([facility]) Use as directed. Replace sensor every 14 days. 6 Each 3 4 Active Insulin Glargine 100 UNIT/ML Subcutaneous Solution (Lantus) Inject 15 Units under the skin daily. 15 mL 3 4 Active NovoLOG FlexPen 100 UNIT/ML Subcutaneous Solution Pen-injector (insulin aspart)Indications:Type 2 diabetes mellitus with hemoglobin A1c goal of less than 7.0% ([facility]) Inject insulin with meals according to sliding scale, up to 12 units per meal 15 mL 4 Active Atorvastatin Calcium 40 MG Oral Tablet (Lipitor)Indications:Typ e 2 diabetes mellitus with hemoglobin A1c goal of less than 7.0% ([facility]),Pure hypercholesterolemia TAKE 1 TABLET BY MOUTH EVERY DAY IN THE MORNING 90 Tablet 4 Active BD Pen Needle Keeley U/F 32G X 4 MM (Insulin Pen Needle) Use with Novolog pens up to 3 times per day 300 Each 4 Active Gabapentin 600 MG Oral Tablet (Neurontin)Indications:D DD (degenerative disc disease), lumbosacral TAKE 1 TABLET BY MOUTH THREE TIMES A DAY 90 Tablet 5 4 Active Gabapentin 600 MG Oral Tablet (Neurontin)Indications:D DD (degenerative disc disease), lumbosacral TAKE 1 TABLET BY MOUTH THREE TIMES A DAY 90 Tablet 5 3 024 Discontin ued(Refil l) Atorvastatin Calcium 40 MG Oral Tablet (Lipitor)Indications:Typ e 2 diabetes mellitus with hemoglobin A1c goal of less than 7.0% (HCC),Pure hypercholesterolemia TAKE 1 TABLET BY MOUTH EVERY DAY IN THE MORNING 90 Tablet 2 3 024 Discontin ued(Refil l) BD Pen Needle Keeley U/F 32G X 4 MM (Insulin Pen Needle) Use with Novolog pens up to 3 times per day 300 Each 1 4 024 Discontin ued(Refil l) metFORMIN HCl 1000 MG Oral Tablet (Glucophage)Indications: Type 2 diabetes mellitus with hemoglobin A1c goal of less than 7.0% (HCC) TAKE 1 TABLET BY MOUTH TWICE A DAY WITH FOOD 180 Tablet 3 4 024 Discontin ued(Refil l) documented as of this encounter (statuses as of 03/02/2024) Active Problems Problem Noted Date Diagnosed Date Diabetic peripheral neuropathy 11/24/2022 Hyperlipidemia with target LDL less than 70 11/02 History of kidney stones 11/24/2022 Vitiligo 11/24/2022 Bipolar depression 11/24/2022 [facility] Anxiety 11/24/2022 Hx of [...] (PreHevBrio) 01/24/2014,12/25/2013 Pneumococcal Conjugate Vacci ne, 20-valent ([id number]) 11/24/2022 Pneumococcal Polysaccharide PPV23 (Pneumovax) 04/21/2021,03/12/2008 Seasonal [...] Miscellaneous Notes * Telephone Encounter - Va Phillips, - 03/02/2024 8:26 AM EDTSigned Prescriptions: Disp Refills Atorvastatin Calcium 40 MG Oral Tablet (Li*90 Tab*1 Sig: TAKE 1 TABLET BY MOUTH EVERY DAY IN THE MORNING Authorizing Provider: VA PHILLIPS Ordering User: MARISELA GARCIA BD Pen Needle Keeley U/F 32G X 4 MM (Insulin*300 Ea*1 Sig: Use with Novolog pens up to 3 times per day Authorizing Provider: VA PHILLIPS Ordering User: Silvestre GARCIA Gabapentin 600 MG Oral Tablet (Neurontin) 90 Tab*5 Sig: TAKE 1 TABLET BY MOUTH THREE TIMES A DAY Authorizing Provider: VA PHILLIPS * Telephone Encounter - Marisela Garcia RP - 03/02/2024 6:58 AM EDTPending Prescriptions: Disp Refills Gabapentin 600 MG Oral Tablet (Neurontin) 90 Tab*5 Sig: TAKE 1 TABLET BY MOUTH THREE TIMES A DAY Signed Prescriptions: Disp Refills Atorvastatin Calcium 40 MG Oral Tablet (Li*90 Tab*1 Sig: TAKE 1 TABLET BY MOUTH EVERY DAY IN THE MORNING Authorizing Provider: VA PHILLIPS Ordering User: MARISELA GARCIA BD Pen Needle Keeley U/F 32G X 4 MM (Insulin*300 Ea*1 Sig: Use with Novolog pens up to 3 times per day Authorizing Provider: VA PHILLIPS Ordering User: MARISELA GARCIA * Telephone Encounter - Rosana Howard PHARM Tech - 02/29/2024 2:44 PM EDT Did you pend patient's preferred pharmacy and medication before forwarding?yes Pharmacy: [facility] [address] [place] [address] Pending Prescriptions: Disp Refills Atorvastatin Calcium 40 MG Oral Tablet (L*90 Tab*2 Sig: TAKE 1 TABLET BY MOUTH EVERY DAY IN THE MORNING BD Pen Needle Keeley U/F 32G X 4 MM (Insuli*300 Ea*1 Sig: Use with Novolog pens up to 3 times per day Gabapentin 600 MG Oral Tablet (Neurontin) 90 Tab*5 Sig: TAKE 1 TABLET BY MOUTH THREE TIMES A DAY Last Visit: 08/12/2023 (in office), Visit date not found (telemedicine) Next Visit: Visit date not found If no future appointments scheduled, and last appointment is greater than a year ago, please schedule patient for a follow-up appointment Last date the medication was ordered: 04/27/23, 09/09/23, 04/26/23 Is this request for a controlled substance?No [...] 05/07/2024 7:40 AM EST Office Visit Dermatology [address] [place] [address] Caroline Dinh PA-C [address] [place] [address] [place] [address] Health Maintenance Due Date Last Done Comments [...] 02/09/2023, Additional history exists B-12 08/12/2024 08/12/2023, 08/0 03/2023, 11/24/2022, Additional history exists TSH 08/12/2024 08/12/2023, [...] A1c goal of less than 7.0% (HCC) Pure hypercholesterolemia DDD (degenerative disc disease), lumbosacral Degeneration of lumbar or lumbosacral intervertebral disc documented in this encounter Care Teams Pulmonologist Relationship Specialty Start Date End Date Va Phillips DO [address] [place] [address] [place] [phone] PCP - General Internal Medicine 11/22/22 documented as of this encounter
--- OUTSIDE RECORDS SUMMARY | 2024-04-17 03:58 | External Medical Summary | Summary of Care ---
Author Name Unknown Organization [facility] Address [address] [place] [address] Phone [phone] Care Team Providers Care Custodial Engineer Name Role Phone Lela Robbins DO Primary Care Provider Encounter Details Date Type Department Care Team (Late st Contact Info) Description 02/29/2024 Telephone Family Medicine [address] [place] [phone] Lela Robbins DO [address] [place] [address] [place] [address] Allergies No known active allergiesdocumented as of this encounter (statuses as of 03/12/2024) Medications Medication Sig Dispensed Refills Start Date End Date Status OXcarbazepine 150 MG Oral Tablet (Trileptal) TAKE ONE TABLET BY MOUTH IN THE MORNING AND TAKE ONE TABLET AT NIGHT IN ADDITION TO TRILEPTAL 300 MG. 60 Tablet 2 Active FreeStyle Theresa 2 [place] DeviceIndications:Type 2 diabetes mellitus with hemoglobin A1c [...] MOUTH TWICE A DAY FOR 10 DAYS. 07/31/202 3 Active Silver sulfADIAZINE 1 % External [...] before meals. 90 Tablet 3 3 Active Gold LassoTouch Delica Lancets 33GIndications:Type 2 diabetes mellitus with hemoglobin A1c goal of less than 7.0% (HCC) Use to check blood sugar up to 3 times daily. E11.9 300 Each 3 3 Active Gold LassoTouch Verio In Vitro Strip (Glucose Blood)Indications:Type 2 [...] per meal 15 mL 3 4 Active Gabapentin 600 MG Oral Tablet (Neurontin)Indications:D DD (degenerative disc disease), lumbosacral TAKE 1 TABLET BY MOUTH THREE TIMES A DAY 90 Tablet 5 3 024 Discontin ued(Refil l) Atorvastatin Calcium 40 MG Oral Tablet (Lipitor)Indications:Typ e 2 diabetes mellitus with hemoglobin A1c goal of less than 7.0% ([facility]),Pure hypercholesterolemia TAKE 1 TABLET BY MOUTH EVERY [...] 11/24/2022 Vitiligo 11/24/2022 Bipolar depression 11/24/2022 Overview: [facility]. Anxiety 11/24/2022 Hx of nonmelanoma [...] (PreHevBrio) 01/24/2014,12/25/2013 Pneumococcal Conjugate Vacci ne, 20-valent ([id number]) 11/24/2022 Pneumococcal Polysaccharide PPV23 (Pneumovax) 04/21/2021,03/12/2008 Seasonal [...] encounter Miscellaneous Notes * Telephone Encounter - Rama Callejas PHARM Tech - 02/29/2024 2:37 PM EDT Patient calling in regarding a medication last prescribed by PCP office, transferring caller to Medication Refill Line for further assistance. Thank you, Rama Callejas Ceiling Installer [facility] 02/29/2024,2:37 PM documented in this encounter Plan of Treatment Upcoming Encounters Date Type Department Care Team (Late st Contact Info) Description 05/07/2024 7:40 AM EST Office Visit Dermatology [address] [place] [address] Caroline Dinh PA-C [address] [place] [address] [place] [address] Health Maintenance Due Date Last Done Comments Cologuard 11/14/2020 Colonoscopy 11/14/2020 Colorectal Cancer Screening 11/14/2020 Fecal Occult Blood Test 11/14/2020 Sigmoidoscopy 11/14/2020 DISCUSS TOBACCO CESSATION (REFER TO SMARTSET #3291) 02/02/2023 02/02/2022 Diabetic Foot Exam 11/25/2023 11/24/2022, 1 07/08/2019, 02/20/2019, Additional history exists Albumin/Creatinine Ratio 02/10/2024 023, 02/02/2022, 11/10/2020, Additional history exists HbA1c 02/10/2024 08/12/2023, 05/05, 02/09/2023, Additional history exists COVID-19 Vaccine () 03/04/2024 07/03/2021, 11/19/2020, 10/29/2020, Additional history exists Influenza Vaccine (FLU shot) (#1) 2024 06/07/2023, 03/16/2022, 04/21/2021, Additional history exists GFR 05/31/2024 05/31/2023, 02/02, 02/09/2023, Additional history exists Diabetic Eye Exam 08/03/2024 08/03/2023, , 02/09/2023, Additional history exists B-12 08/12/2024 08/12/2023, 08/0 03/2023, 11/24/2022, Additional history exists TSH 08/12/2024 08/12/2023, 05/05, 02/09/2023, Additional history exists Lipid Panel 05/31/2028 05/31/2023, 110 08/2021, 11/10/2020, Additional history exists DTap/Tdap Vaccines [...] Not on filedocumented as of this encounter Care Teams Custodial Engineer Relationship Specialty Start Date End Date Lela Robbins DO [address] [place] [address] [place] [phone] PCP - General Internal Medicine 11/22/22 documented as of this encounter
--- OUTSIDE RECORDS SUMMARY | 2024-04-17 03:58 | External Medical Summary | Summary of Care ---
Author Name Unknown Organization [facility] Address [address] [place] [address] Phone [phone] Care Team Providers Care Outside Sales Account Representative Name Role Phone Va Phillips DO Primary Care Provider [phone] Reason for Visit * Reason Onset Date Comments Medication Refill 02/29/2024 Encounter Details Date Type Department Care Team (Late st Contact Info) Description 02/29/2024 Refill Family Medicine [address] [phone] Va Phillips DO [address] [place] [address] [place] [address] Type 2 diabetes mellitus with hemoglobin A1c goal of less than 7.0% ([facility]) Allergies No known active allergiesdocumented as of this encounter (statuses as of 02/29/2024) Medications Medication Sig Dispensed Refills Start Date End Date Status OXcarbazepine 150 MG Oral Tablet (Trileptal) TAKE ONE TABLET BY MOUTH IN THE MORNING AND TAKE ONE TABLET AT NIGHT IN ADDITION TO TRILEPTAL 300 MG. 60 Tablet 2 Active FreeStyle Theresa 2 [place] DeviceIndications:Type 2 diabetes mellitus with hemoglobin A1c goal of less than 7.0% ([facility]) Use as directed. 1 Each [...] before meals. 90 Tablet 3 3 Active Hotswap Delgladis Lancets 33GIndications:Type 2 diabetes mellitus with hemoglobin A1c goal of less than 7.0% (HCC) Use to check blood sugar up to 3 times daily. E11.9 300 Each 3 3 Active Hotswap Verio In Vitro Strip (Glucose Blood)Indications:Type 2 diabetes mellitus with hemoglobin A1c goal of less than 7.0% (HCC) Use to check blood sugar up to 3 times daily. E11.9 300 Strip 3 3 Active ImplanetTouch Verio Reflect w/Device KitIndications:Type 2 diabetes mellitus with hemoglobin A1c goal of less than 7.0% (HCC) Use as directed. Use to check blood sugar up to 3 times daily. E11.9 1 Kit 3 Active Gabapentin 600 MG Oral Tablet (Neurontin)Indications:D DD (degenerative disc disease), lumbosacral TAKE 1 TABLET BY MOUTH THREE TIMES A DAY 90 Tablet 5 3 Active Atorvastatin Calcium 40 MG Oral Tablet (Lipitor)Indications:Typ e 2 diabetes mellitus with hemoglobin A1c goal of less than 7.0% (HCC),Pure hypercholesterolemia TAKE 1 TABLET BY MOUTH EVERY DAY IN THE MORNING 90 Tablet 2 3 Active Cyclobenzaprine HCl 10 MG Oral [...] for pain. 30 Tablet 1 3 Active BD Pen Needle Keeley U/F 32G X 4 MM (Insulin Pen Needle) Use with Novolog pens up to 3 times per day 300 Each 1 4 Active Insulin Syringe 31G X 5/16" 0.5 MLIndications:Type 2 diabetes mellitus with hemoglobin A1c goal of less than 8.0% (HCC) Use to inject insulin once daily. 100 Each 3 4 Active Glucose 4 GM Oral Tablet ChewableIndications:DM type 2, not at goal (HCC) as directed for hypglycemia 30 Tablet 1 4 Active metFORMIN HCl 1000 MG Oral Tablet (Glucophage)Indications: Type 2 diabetes mellitus with hemoglobin A1c goal of less than 7.0% (HCC) TAKE 1 TABLET BY MOUTH TWICE A DAY WITH FOOD 180 Tablet 3 4 Active Levothyroxine Sodium 50 MCG Oral Tablet (Levoxyl)Indications:Acq uired hypothyroidism Take 1 Tablet by mouth daily first thing in the morning. 90 Tablet 3 4 Active FreeStyle Theresa 2 SensorIndications:Type 2 diabetes mellitus with hemoglobin A1c goal of less than 7.0% (HCC) Use as directed. Replace sensor every 14 [...] per meal 15 mL 3 4 Active NovoLOG FlexPen 100 UNIT/ML Subcutaneous Solution Pen-injector (insulin aspart)Indications:Type 2 diabetes mellitus with hemoglobin A1c goal of less than 7.0% ([facility]) Inject insulin with meals according to sliding scale, up to 12 units per meal 15 mL 3 4 024 Discontin ued(Refil l) documented as of this encounter (statuses as of 02/29/2024) Active Problems Problem Noted Date Diagnosed Date Diabetic peripheral neuropathy 11/24/2022 Hyperlipidemia with target LDL less than 70 11/02 History of kidney stones 11/24/2022 Vitiligo 11/24/2022 Bipolar depression 11/24/2022 Overview: [facility]. Anxiety 11/24/2022 Hx of nonmelanoma skin cancer [...] as of this encounter (statuses as of 02/29/2024) Resolved Problems Problem Noted Date Diagnosed Date [...] as of this encounter (statuses as of 02/29/2024) Immunizations Name Administration Dates Next Due COVID-19 mRNA, LNP-s, No Pre serve, 2-Dose Series (Moderna) 11/19/2020,10/29/2020 COVID-19, MRNA-LNP, 23-24, P F, 25 MCG/0.25 mL, 6MO-11YRS, IM (MODERNA) 10/22/2020 COVID-19, mRNA, LNP-s, PF, B ooster, 100mcg/0.5mg (Moderna) 07/03/2021 H1N1 2009 Influenza, IM 06/24/2009 Hepatitis B, 20+ yrs 07/01/2014,01/24/2014,12/25 Hepb Rec., 3-antigen, Al(oh3 ), Adult, 10 Mg/ml, Im (PreHevBrio) 01/24/2014,12/25/2013 Pneumococcal Conjugate Vacci ne, 20-valent ([id number]) 11/24/2022 Pneumococcal Polysaccharide PPV23 (Pneumovax) 04/21/2021,03/12/2008 Seasonal Influenza Virus Vac cine, Unspecified Formulation 03/06/2019,03/23/2017,05/06/2016,03/22,03/14/2012,04/02/2011,03/18/2010 ,03/25/2009,04/15/2008,05/22/2007 Seasonal Influenza, PF, 6 M & above, IM , (FluLaval or Fluzone) 06/07/2023,03/16/2022,04/21/2021,03/06,03/23/2017 Seasonal Influenza, Quadriva lent, No Preserve, IM 05/06/2016 Seasonal Influenza, Split, I IV3, With Preserve, Inj 03/22/2014,03/14/2012,04/02/2011,03/18,03/25/2009,04/15/2008,05/22/2007 TDAP (age 10 and older)(Boostrix) 06/09/2022,,07/23/2008 [...] Telephone Encounter - Va Phillips DO - 02/29/2024 12:44 PM EDTSigned Prescriptions: Disp Refills NovoLOG FlexPen 100 UNIT/ML Subcutaneous S*15 mL 3 Sig: Inject insulin with meals according to sliding scale, up to 12 units per meal Authorizing Provider: VA PHILLIPS * Telephone Encounter - Janine Purdy RN - 02/29/2024 11:16 AM EDTPending Prescriptions: Disp Refills NovoLOG FlexPen 100 UNIT/ML Subcutaneous S*15 mL 3 Sig: Inject insulin with meals according to sliding scale, up to 12 units per meal * Telephone Encounter - Kate Doll OSA - 02/29/2024 10:42 AM EDT Did you pend patient's preferred pharmacy and medication before forwarding?yes Pharmacy: [facility] [address] [place] [address] [place] [address] Pending Prescriptions: Disp Refills NovoLOG FlexPen 100 UNIT/ML Subcutaneous *15 mL 3 Sig: Inject insulin with meals according to sliding scale, up to 12 units per meal Last Visit: 08/12/2023 (in office), Visit date not found (telemedicine) Next Visit: Visit date not found If no future appointments scheduled, and last appointment is greater than a year ago, please schedule patient for a follow-up appointment Last date the medication was ordered: 3.8.24 Is this request for a controlled substance?No [...] 7:40 AM EST Office Visit Dermatology [address] [place] [address] Caroline Dinh PA-C [address] [place] [address] [place] [address] Health Maintenance Due Date Last Done Comments [...] (HCC) documented in this encounter Care Teams Outside Sales Account Representative Relationship Specialty Start Date End Date Va Phillips DO [address] [place] [address] [place] [address] PCP - General Internal Medicine 11/22/22 documented as of this encounter
--- OUTSIDE RECORDS SUMMARY | 2024-04-17 03:58 | External Medical Summary | Summary of Care ---
Author Name Unknown Organization [facility] Address [address] [facility] [place] [address] Phone [phone] Care Team Providers Care Powertrain Design Engineer Name Role Phone Va Phillips DO Primary Care Provider [phone] Reason for Visit * Reason Onset Date Comments Medication Refill 03/14/2024 Encounter Details Date Type Department Care Team (Late st Contact Info) Description 03/14/2024 Refill Family Medicine [address] [phone] aV Phillips DO [address] [place] [address] [place] [address] Type 2 diabetes mellitus with hemoglobin A1c goal of less than 7.0% ([facility]) Allergies No known active allergiesdocumented as of this encounter (statuses as of 03/14/2024) Medications Medication Sig Dispensed Refills Start Date End Date Status OXcarbazepine 150 MG Oral Tablet (Trileptal) TAKE ONE TABLET BY MOUTH IN THE MORNING AND TAKE ONE TABLET AT NIGHT IN ADDITION TO TRILEPTAL 300 MG. 60 Tablet 2 Active FreeStyle Theresa 2 [place] DeviceIndications:Type 2 diabetes mellitus with hemoglobin A1c goal of less than 7.0% ([facility]) Use as directed. 1 Each 3 Active [...] before meals. 90 Tablet 3 3 Active [employer] Delica Lancets 33GIndications:Type 2 diabetes mellitus with hemoglobin A1c goal of less than 7.0% (HCC) Use to check blood sugar up to 3 times daily. E11.9 300 Each 3 3 Active [employer] Verio In Vitro Strip (Glucose Blood)Indications:Type 2 diabetes mellitus with hemoglobin A1c goal of less than 7.0% (HCC) Use to check blood sugar up to 3 times daily. E11.9 300 Strip 3 3 Active [employer] SolutionsTouch Verio Reflect w/Device KitIndications:Type 2 diabetes mellitus [...] hemoglobin A1c goal of less than 8.0% ([facility]) Use to inject insulin once daily. 100 [...] hemoglobin A1c goal of less than 7.0% ([facility]) Use as directed. Replace sensor every 14 days. 6 Each 3 4 Active Insulin Glargine 100 UNIT/ML Subcutaneous Solution (Lantus) Inject 15 Units under the skin daily. 15 mL 3 4 Active Atorvastatin Calcium 40 MG Oral Tablet (Lipitor)Indications:Typ e 2 diabetes mellitus with hemoglobin A1c goal of less than 7.0% ([facility]),Pure hypercholesterolemia TAKE 1 TABLET BY MOUTH EVERY [...] WITH FOOD 180 Tablet 1 4 Active NovoLOG FlexPen 100 UNIT/ML Subcutaneous Solution Pen-injector (insulin aspart)Indications:Type 2 diabetes mellitus with hemoglobin A1c goal of less than 7.0% (HCC) Inject insulin with meals according to sliding scale, up to 12 units per meal dx e11.9 15 mL 3 4 Active NovoLOG FlexPen 100 UNIT/ML Subcutaneous Solution Pen-injector (insulin aspart)Indications:Type 2 diabetes mellitus with hemoglobin A1c goal of less than 7.0% ([facility]) Inject insulin with meals according to sliding scale, up to 12 units per meal 15 mL 3 4 024 Discontin ued(Refil l) documented as of this encounter (statuses as of 03/14/2024) Active Problems Problem Noted Date Diagnosed Date Diabetic peripheral neuropathy 11/24/2022 Hyperlipidemia with target LDL less than 70 11/02 History of kidney stones 11/24/2022 Vitiligo 11/24/2022 Bipolar depression 11/24/2022 Overview: [facility]. Anxiety 11/24/2022 Hx of nonmelanoma [...] as of this encounter (statuses as of 03/14/2024) Resolved Problems Problem Noted Date Diagnosed Date [...] as of this encounter (statuses as of 03/14/2024) Immunizations Name Administration Dates Next Due COVID-19 mRNA, LNP-s, No Pre serve, 2-Dose Series (Moderna) 11/19/2020,10/29/2020 COVID-19, MRNA-LNP, 23-24, P F, 25 MCG/0.25 mL, 6MO-11YRS, IM (MODERNA) 10/22/2020 COVID-19, mRNA, LNP-s, PF, B ooster, 100mcg/0.5mg (Moderna) 07/03/2021 H1N1 2009 Influenza, IM 06/24/2009 Hepatitis B, 20+ yrs 07/01/2014,01/24/2014,12/25 Hepb Rec., 3-antigen, Al(oh3 ), Adult, 10 Mg/ml, Im (PreHevBrio) 01/24/2014,12/25/2013 Pneumococcal Conjugate Vacci ne, 20-valent ([id number]) 11/24/2022 Pneumococcal Polysaccharide PPV23 (Pneumovax) 04/21/2021,03/12/2008 Seasonal [...] Telephone Encounter - Va Phillips DO - 03/14/2024 4:23 PM EDTSigned Prescriptions: Disp Refills NovoLOG FlexPen 100 UNIT/ML Subcutaneous S*15 mL 3 Sig: Inject insulin with meals according to sliding scale, up to 12 units per meal dx e11.9 Authorizing Provider: VA PHILLIPS * Telephone Encounter - Janine Purdy RN - 03/14/2024 4:21 PM EDTPending Prescriptions: Disp Refills NovoLOG FlexPen 100 UNIT/ML Subcutaneous S*15 mL 3 Sig: Inject insulin with meals according to sliding scale, up to 12 units per meal dx e11.9 * Telephone Encounter - Kelly Watson OSA - 03/14/2024 3:54 PM EDT Did you pend patient's preferred pharmacy and medication before forwarding?yes Pharmacy: [facility] [address] [place] [address] Pending Prescriptions: Disp Refills NovoLOG FlexPen 100 [...] appointment Last date the medication was ordered: 02/29/24 Is this request for a controlled substance?No Urine Drug Screen:No results found. However, due to the size of the patient record, not all encounters were searched. Please check Results Review for a complete set of results. Patient Phone Numbers miLibris [phone] Labs: Lab Results Component Value Date/Time CREAT [...] 05/07/2024 7:40 AM EST Office Visit Dermatology [address] [place] [id number] Caroline Dinh PA-C [address] [place] [address] [place] [phone] Health Maintenance Due Date Last Done Comments Cologuard 11/14/2020 Colonoscopy 11/14/2020 Colorectal Cancer Screening 11/14/2020 Fecal Occult Blood Test 11/14/2020 Sigmoidoscopy 11/14/2020 DISCUSS TOBACCO CESSATION (REFER TO SMARTSET #4535) 02/02/2023 02/02/2022 Diabetic Foot Exam 11/25/2023 11/24/2022, [...] (HCC) documented in this encounter Care Teams Powertrain Design Engineer Relationship Specialty Start Date End Date Va Phillips DO [address] [place] [address] [place] [phone] PCP - General Internal Medicine 11/22/22 documented as of this encounter
--- OUTSIDE RECORDS SUMMARY | 2024-04-17 03:58 | External Medical Summary | Summary of Care ---
Author Name Unknown Organization [facility] Address [address] [place] [address] Phone [phone] Care Team Providers Care Analytics Lead Name Role Phone RobbinsOrinLeladomonique Thrasher Primary Care Provider Encounter Details Date Type Department Care Team (Late st Contact Info) Description 03/20/2024 Orders Only Outcomes Research Department [address] [place] [address] Kamille James CHRA [facility] Research Other*[id number] Allergies No known active allergiesdocumented as of this encounter (statuses as of 03/20/2024) Medications Medication Sig Dispensed Refills Start Date End Date Status OXcarbazepine 150 MG Oral Tablet (Trileptal) TAKE ONE TABLET BY MOUTH IN THE MORNING AND TAKE ONE TABLET AT NIGHT IN ADDITION TO TRILEPTAL 300 MG. 60 Tablet 2 Active FreeStyle Theresa 2 [place] DeviceIndications:Type 2 diabetes mellitus with hemoglobin A1c goal of less than 7.0% ([facility]) Use as directed. 1 Each 3 Active [...] before meals. 90 Tablet 3 3 Active [employer] Delica Lancets 33GIndications:Type 2 diabetes mellitus with hemoglobin A1c goal of less than 7.0% (HCC) Use to check blood sugar up to 3 times daily. E11.9 300 Each 3 3 Active [employer] In Vitro Strip (Glucose Blood)Indications:Type 2 diabetes mellitus with hemoglobin A1c goal of less than 7.0% (HCC) Use to check blood sugar up to 3 times daily. E11.9 300 Strip 3 3 Active [employer] Verio Reflect w/Device KitIndications:Type 2 diabetes mellitus [...] dx e11.9 15 mL 3 4 Active documented as of this encounter (statuses as of 03/20/2024) Active Problems Problem Noted Date Diagnosed Date Diabetic peripheral neuropathy 11/24/2022 Hyperlipidemia with target LDL less than 70 11/02 History of kidney stones 11/24/2022 Vitiligo 11/24/2022 Bipolar depression 11/24/2022 Overview: [facility]. Anxiety 11/24/2022 Hx of nonmelanoma [...] as of this encounter (statuses as of 03/20/2024) Resolved Problems Problem Noted Date Diagnosed Date [...] as of this encounter (statuses as of 03/20/2024) Immunizations Name Administration Dates Next Due COVID-19 mRNA, LNP-s, No Pre serve, 2-Dose Series (Moderna) 11/19/2020,10/29/2020 COVID-19, MRNA-LNP, 23-24, P F, 25 MCG/0.25 mL, 6MO-11YRS, IM (MODERNA) 10/22/2020 COVID-19, mRNA, LNP-s, PF, B ooster, 100mcg/0.5mg (Moderna) 07/03/2021 H1N1 2009 Influenza, IM 06/24/2009 Hepatitis B, 20+ yrs 07/01/2014,01/24/2014,12/25 Hepb Rec., 3-antigen, Al(oh3 ), Adult, 10 Mg/ml, Im (PreHevBrio) 01/24/2014,12/25/2013 Pneumococcal Conjugate Vacci ne, 20-valent ([id number]) 11/24/2022 Pneumococcal Polysaccharide PPV23 (Pneumovax) 04/21/2021,03/12/2008 Seasonal [...] on file documented as of this encounter Plan of Treatment Upcoming Encounters Date Type Department Care Team (Late st Contact Info) Description 05/07/2024 7:40 AM EST Office Visit Dermatology [address] [place] [phone] Caroline Dinh PA-C [address] [place] [address] [place] [phone] Scheduled Orders Name Type Priority Associated Diagnoses Orde r Schedule MYCODE SUBSEQUENT ADULT Lab Routine [facility] Other*[id number] Every 6 Months for 2 Occurrences starting 03/20/2024 until 04/09/2025 Health Maintenance Due Date Last Done Comments [...] 11/24/2022, Additional history exists TSH 08/12/2024 08/12/2023, 112 02/2023, 02/09/2023, Additional history exists Lipid Panel 05/31/2028 [...] as of this encounter Visit Diagnoses Diagnosis [facility] Other*[id number] documented in this encounter Care Teams Analytics Lead Relationship Specialty Start Date End Date Lela Robbins DO [address] [place] [address] [place] [phone] PCP - General Internal Medicine 11/22/22 documented as of this encounter
[2024-04-17 04:09] VITALS: O2SAT 98
[2024-04-17] MEDS: LEVOTHYROXINE SODIUM 50 MCG TABLET PO SCH (06:10)
[2024-04-17 07:44] LABS: BUN Creatinine Ratio 18.6 (10-20); Calcium 8.6 mg/dl (8.6-10.3); Creatinine Clr Calc Pharmacy 83.1 ml/min; Magnesium 1.5 mg/dl (1.7-2.4); Phosphorus 2.9 mg/dl (2.5-4.9); Potassium 3.5 mmol/L (3.5-5.1)
[2024-04-17] MEDS: ATORVASTATIN 40 MG TAB PO SCH (07:52)
[2024-04-17] MEDS: NICOTINE 14 MG/24 HR PATCH TD SCH (07:52)
[2024-04-17] MEDS: CYANOCOBALAMIN (B-12) 500 MCG TABLET PO SCH (07:52)
[2024-04-17] MEDS: ASPIRIN 81 MG ECTAB PO SCH (07:53)
[2024-04-17] MEDS: RIZATRIPTAN BENZOATE 10 MG TAB PO PRN (07:57)
[2024-04-17 07:59] LABS: Hematocrit (blood only) 32.6 % (42.0-52.0); Hemoglobin 12.2 g/dl (14.0-18.0); Mean Corpuscular Hemoglobin 30.3 pg (25.0-34.0); Mean Corpuscular Hgb Conc 37.4 g/dL (32.0-36.0); Mean Corpuscular Volume 80.9 fL (80.0-100.0); Mean Platelet Volume 9.3 fL (9.4-12.4); Platelet Count 329 K/uL (130-400); RDW Coefficient of Variation 11.1 % (11.5-14.5); RDW Standard Deviation 32.5 fL (36.4-46.3); Red Blood Count 4.03 M/uL (4.70-6.10); White Blood Count 7.92 K/ul (4.8-10.8)
[2024-04-17 08:33] LABS: Estimated Average Glucose 335 mg/dl; Hemoglobin A1C 13.3 % (4.5-5.6)
--- NOTE | 2024-04-17 08:56 | Electrocardiogram Report ---
Test Reason : Blood Pressure : */* mmHG Vent. Rate : 96 BPM Atrial Rate : 96 BPM P-R Int : 132 ms QRS Dur : 88 ms QT Int : 364 ms P-R-T Axes : -15 22 -18 degrees QTcB Int : 459 ms Normal sinus rhythm Normal ECG When compared with ECG of 23-Feb-2023 14:48, No significant change Confirmed by Byron Jameson ([id number]) on 04/17/2024 8:56:06 AM Referred By: REFERRED SELF Confirmed By: Byron aJmeson
--- NOTE | 2024-04-17 08:57 | Electrocardiogram Report ---
Test Reason : Blood Pressure : */* mmHG Vent. Rate : 82 BPM Atrial Rate : 82 BPM P-R Int : 140 ms QRS Dur : 84 ms QT Int : 370 ms P-R-T Axes : 62 58 63 degrees QTcB Int : 432 ms Normal sinus rhythm Left atrial enlargement Borderline ECG When compared with ECG of 16-Apr-2024 16:54, No significant change Confirmed by Byron Jameson ([id number]) on 04/17/2024 8:56:32 AM Referred By: REFERRED SELF Confirmed By: Byron Jameson
[2024-04-17] MEDS ORDERED: NON-FORMULARY MEDICATION (Pnv Cmb#95-Ferrous Fumarate-Fa [Prenatal] 28 mg iron- 800 mcg Ta PO SCH (09:00)
[2024-04-17 09:20] VITALS: RESP 18
[2024-04-17] MEDS: POTASSIUM CHLORIDE CRTAB 20 MEQ TABCR PO STA (09:36)
[2024-04-17] MEDS: MAGNESIUM SULFATE / D5W 1 GM/100 ML BAG IV SCH (09:36)
[2024-04-17 10:26] LABS: Creatinine Clr Calc Pharmacy 83.9 ml/min; Magnesium 1.5 mg/dl (1.7-2.4); Phosphorus 2.7 mg/dl (2.5-4.9); Potassium 3.6 mmol/L (3.5-5.1)
[2024-04-17] MEDS: LANTUS PER UNIT CHARGE SC STA (11:16)
--- NOTE | 2024-04-17 11:39 | Hospitalist Progress Note ---
Date of Service April 17, 2024 Assessment & Plan (1) DKA (diabetic ketoacidosis): Plan: This is a 48-year-old male with PMH of poorly controlled type 2 diabetes, diabetic peripheral neuropathy, acquired hypothyroidism, hyperlipidemia, degenerative disc disease of the lumbosacral spine, history of migraine headaches, bipolar depression, tobacco use and other medical problems listed below who presents with chest pain that developed while at work this afternoon and was found to have DKA. BSG 650 2/2 running out of lantus and testing strips 2 days ago H/o poorly controlled DM II, last a1c in Epic 11.2 in Aug 2023- repeat in AM VBG pH 7.35, bicarb 18, anion gap 20 Has been on insulin drip, IV fluids, with regular electrolytes monitoring Has been requiring minimal doses of intravenous insulin and will be changed to subcu from this morning Diet has been started He remains free from any symptoms and has been ambulating without any difficulties Appreciate glycemic pharmacist input and recommendation Will start his usual doses of Lantus at home and he will be discharged this afternoon if no other issues (2) Diabetes mellitus, type 2: Plan: Has had diabetes education Hemoglobin A1c is high at 13.3 (3) Hypomagnesemia: Plan: Mag 1.4, replaced. Monitor Has been replaced (4) Pseudohyponatremia: Plan: Na 122 corrects to 133 when accounting for BSG of 650 Continue to monitor Sodium level is minimally low at 132 (5) Chest pain: Plan: CP appears atypical in nature, suspect MSK cause as pain originated in neck/across upper back Although patient with significant risk factors for ACS given uncontrolled DM, HTN, HLD, ongoing tobacco use Troponin negative x 2 - continue to trend, monitor on tele overnight EKG with NSR with HR of 96. No acute ST elevation 2D echo given risk factors as above, recurrent CP No more chest pain, palpitation or shortness of breath (6) KIKE (acute kidney injury): Plan: Cr 1.84 (baseline ~1.1) in setting of dehydration Expect improvement with correction of BSG, fluid balance Creatinine has been normalized (7) HLD (hyperlipidemia): Plan: Continue statin (8) Tobacco use disorder: Plan: Smoking 10-20 cigarettes daily Nicotine patch ordered Encourage cessation DVT Ppx: SQ heparin Code status: FULL PCP: It[facility] Dispo: Admitted to PCU Will be discharged home this afternoon Admission and Anticipated Discharge Date Admission Date: April 16, 2024 Subjective 04/17/2024 The patient was seen and examined in telemetry unit He has been feeling much better and denies any symptoms Denies any weakness, nausea and/or vomiting or abdominal discomfort He has been requiring minimal doses of intravenous insulin and will be changed to subcu He wants to be discharged this afternoon Review of Systems Review of Systems: all systems reviewed and are unremarkable except as noted below Physical Exam Physical Exam: sitting at the edge of the bed without any acute distress Constitutional: well developed and well nourished; not ill appearing Eyes: PERRL, conjunctivae normal, anicteric sclerae ENMT: external ear and nose normal, oropharynx normal Neck: trachea midline, no thyromegaly Respiratory: no respiratory distress Auscultation: lungs clear to auscultation bilaterally Cardiovascular: Rate/Rhythm: regular rate and regular rhythm; not tachycardic Heart Sounds: normal S1 and normal S2; no murmur Extremities: no edema Gastrointestinal (Abdomen): Inspection/Auscultation: normal bowel sounds; abdomen not distended Percussion/Palpation: abdomen soft; abdomen nontender Musculoskeletal: no acute arthritis involving any of the joint Neurologic: normal touch/pain/proprioception and moves all extremities; no focal motor deficits Psychiatric: A+Ox3, euthymic affect Lymphatic: no cervical or axillary lymphadenopathy Results & Data Results & Data Vital Signs (Past 12 Hours) Vital Signs Temp Pulse Resp BP Pulse Ox O2 Del Method 04/17/24 08:00 36.6 C 88 18 114/76 98 Room Air 04/17/24 04:08 36.6 C 78 17 137/87 98 Room Air Laboratory Results Short CBC 04/16/24 04/17/24 Range/Units 17:00 07:02 WBC 10.02 7.92 (4.8-10.8) K/ul Hgb 13.8 L 12.2 L (14.0-18.0) g/dl Hct 38.2 L 32.6 L (42.0-52.0) % Plt Count 427 H 329 (130-400) K/uL BMP 04/16/24 04/16/24 04/17/24 17:00 22:22 02:24 Sodium 122 L 129 L 132 L Potassium 4.5 3.7 3.4 L Chloride 84 L 94 L 97 L Carbon Dioxide 18 L 24 24 BUN 28 H 26 H 23 Creatinine 1.84 H 1.51 H D 1.31 Glucose 650 H* 207 H 135 H Calcium 9.7 9.5 9.1 04/17/24 04/17/24 07:02 09:46 Sodium 133 L 132 L Potassium 3.5 3.6 Chloride 99 98 Carbon Dioxide 23 24 BUN 21 19 Creatinine 1.13 1.12 Glucose 130 H 154 H Calcium 8.6 9.0 Liver Function 04/16/24 Range/Units 17:00 Total Bilirubin 0.5 (0.2-1.0) mg/dl AST 9 L (13-39) U/L ALT 7 (7-52) U/L Alkaline Phosphatase 123 H (34-104) U/L Albumin 4.4 (3.4-5.0) gm/dl Medications Administered Current Inpatient Medications Acetaminophen (Acetaminophen 500 Mg Tab) 1,000 mg PO Q8H PRN PRN Reason: Pain or Fever Stop: 05/16/24 20:40 Aspirin (Aspirin 81 Mg Ectab) [facility] Stop: 05/17/24 08:59 Last Admin: 04/17/24 07:53 Dose: 81 mg Atorvastatin Calcium (Atorvastatin 40 Mg Tab) 40 [facility] Stop: 05/17/24 08:59 Last Admin: 04/17/24 07:52 Dose: 40 mg Cyanocobalamin (Cyanocobalamin (B-12) 500 Mcg Tablet) 1,000 mcg [facility] Stop: 05/17/24 08:59 Last Admin: 04/17/24 07:52 Dose: 1,000 mcg Cyclobenzaprine HCl (Cyclobenzaprine Hcl 10 Mg Tab) 10 mg PO HS PRN PRN Reason: Muscle Spasm Stop: 05/16/24 20:40 Dextrose (Dextrose 50% 50 Ml Syringe) 25 - 50 ml IV UD PRN; Protocol PRN Reason: Hypoglycemia Protocol Stop: 05/16/24 18:29 Last Admin: 04/16/24 23:34 Dose: 25 ml Gabapentin (Gabapentin 600 Mg Tab) 600 mg PO TID [facility] Stop: 05/16/24 20:59 Last Admin: 04/17/24 07:53 Dose: 600 mg Glucagon (Glucagon For Inj 1 Mg Vial) 1 mg SQ UD PRN; Protocol PRN Reason: Hypoglycemia Protocol Stop: 05/16/24 18:29 Glucose (Glucose 40% Gel 15 Gm Tube) 15 - 30 gm PO UD PRN; Protocol PRN Reason: Hypoglycemia Protocol Stop: 05/16/24 18:29 Glucose (Glucose 10 Tab/Tube) 4 - 8 tab PO UD PRN; Protocol PRN Reason: Hypoglycemia Protocol Stop: 05/16/24 18:29 Heparin Sodium (Porcine) (Heparin Sod 5,000 Unit/0.5 Ml Vial) 5,000 units SQ Q8 [facility] Stop: 05/16/24 21:59 Last Admin: 04/17/24 06:10 Dose: 5,000 units Insulin Human Regular 250 (units/ Sodium Chloride) 250 mls @ 1 mls/hr IV .Q24H [facility]; Protocol Stop: 04/17/24 16:30 Last Titration: 04/17/24 11:25 Dose: 1 units/hr, 1 mls/hr Magnesium Sulfate/Dextrose (Magnesium Sulfate / D5w) 1 gm in 100 mls @ 50 mls/hr IV Q2H [facility] Stop: 04/17/24 13:29 Last Admin: 04/17/24 11:18 Dose: 50 mls/hr Insulin Aspart (Insulin Aspart Per Unit Charge) 0 units SC ACHS [facility] Stop: 05/16/24 20:59 Last Admin: 04/17/24 07:58 Dose: Not Given Levothyroxine Sodium (Levothyroxine Sodium 50 Mcg Tablet) 50 mcg PO DAILYBB [facility] Stop: 05/17/24 06:29 Last Admin: 04/17/24 06:10 Dose: 50 mcg Miscellaneous (Carbohydrates For Hypoglycemia ) 15 - 30 gm PO UD PRN PRN Reason: Hypoglycemia Treatment Stop: 05/16/24 18:29 Miscellaneous (Remove Nicoderm Patch) 1 each N/A DAILY@0859 [facility] Stop: 05/17/24 08:58 Last Admin: 04/17/24 07:59 Dose: 1 each Miscellaneous Information (Pharmacy Glycemic Mgmt Consult) 1 each N/A UD PRN PRN Reason: Consult Stop: 05/16/24 18:20 Nicotine (Nicotine 14 Mg/24 Hr Patch) 1 patch TD QAM [facility] Stop: 05/17/24 08:59 Last Admin: 04/17/24 07:52 Dose: 1 patch Ondansetron HCl (Ondansetron Inj 2 Mg/Ml 2 Ml Vial) 4 mg IV Q6H PRN PRN Reason: Nausea Stop: 05/16/24 20:40 Polyethylene Glycol (Polyethylene (Miralax) 17 Gm Pack) 17 gm PO DAILY PRN PRN Reason: Constipation Stop: 05/16/24 20:40 Rizatriptan Benzoate (Rizatriptan Benzoate 10 Mg Tab) 10 mg PO UD PRN PRN Reason: Migraine Headache Stop: 05/16/24 20:40 Last Admin: 04/17/24 07:57 Dose: 10 mg
--- NOTE | 2024-04-17 12:19 | Pharmacy Report ---
Pharmacy Glycemic Short Note 2 - Date of Service April 17, 2024 - Glycemic Short BSG Results (Last 24 hours): 04/16/24 04/16/24 04/16/24 17:00 18:49 19:51 Glucose 650 H* POC Glucose 589 H* 385 H* 04/16/24 04/16/24 04/16/24 20:59 21:57 22:22 Glucose 207 H POC Glucose 341 H* 227 H 04/16/24 04/16/24 04/16/24 23:06 23:18 23:31 Glucose POC Glucose 139 H 143 H 139 H 04/16/24 04/17/24 04/17/24 23:47 00:44 02:10 Glucose POC Glucose 222 H 168 H 145 H 04/17/24 04/17/24 04/17/24 02:24 02:58 04:06 Glucose 135 H POC Glucose 131 H 159 H 04/17/24 04/17/24 04/17/24 04:59 06:04 07:02 Glucose 130 H POC Glucose 134 H 140 H 04/17/24 04/17/24 04/17/24 07:06 08:02 09:02 Glucose POC Glucose 137 H 160 H 193 H 04/17/24 04/17/24 04/17/24 09:46 10:05 10:21 Glucose 154 H POC Glucose 148 H 144 H 04/17/24 04/17/24 10:36 11:13 Glucose POC Glucose 151 H 204 H OUTPATIENT ANTIDIABETIC REGIMEN: * Lantus 24 units SC qAM (ran out 2 days PSYCHIATRIC TECH) * Metformin 1 g PO BID * HbA1c 13.3% on 04/17/24 ASSESSMENT: * 48 yo M admitted w DKA. Insulin drip started and was successfully titrated down rather quickly, and was associated w improvement in AG, CO2. Drip running at 0.7 units/hr this AM. D5W and potassium-containing fluids running * Discussed with Dr. Miller - patient would like to leave today. OK to transition drip. Will give home dose of Lantus and have the drip off no later than 1630 today. PLAN FOR INPATIENT GLYCEMIC CONTROL: * Hold outpatient oral diabetes medications * Basal insulin * Lantus 24 units SQ x1 administered at 1116 * Insulin drip to stop no later than 1630. OK to stop as early as 1400 if BSG's <180 x2 consecutive checks and insulin drip <1 unit/hr * Bolus insulin * Correction Factor: per insulin drip calculator at lunch * Bolus insulin * ACHS starting at dinner (or q6h if NPO). Plus one overnight check. * Goal range 110-140 mg/dL * Correction factor: 30 mg/dL/unit * Carb ratio: 11 g CHO/unit
[2024-04-17 15:13] LABS: BUN Creatinine Ratio 14.6 (10-20); Calcium 8.7 mg/dl (8.6-10.3); Creatinine Clr Calc Pharmacy 65.2 ml/min; Magnesium 1.8 mg/dl (1.7-2.4); Phosphorus 2.5 mg/dl (2.5-4.9); Potassium 4.2 mmol/L (3.5-5.1)
[2024-04-17 16:07] VITALS: BP 111/78; TEMP 98.7
[2024-04-17] MEDS ORDERED: INSULIN ASPART PER UNIT CHARGE SC SCH (16:30)
[2024-04-17 17:05] VITALS: PULSE 78
--- NOTE | 2024-04-17 17:15 | Discharge Summary ---
Date of Service April 17, 2024 Admission HPI Per Admitting Provider This is a 48-year-old male with PMH of poorly controlled type 2 diabetes, diabetic peripheral neuropathy, acquired hypothyroidism, hyperlipidemia, degenerative disc disease of the lumbosacral spine, history of migraine headaches, bipolar depression, tobacco use and other medical problems listed below who presents with chest pain that developed while at work this afternoon. Patient states he was at work in normal state of health and then had aching, spasm-like pain across his back shoulder blades and neck with some radiation to the chest, although admittedly pain was worse across his back. This episode of pain lasted approx 20-30 minutes. Was also noted to be diaphoretic and nauseous at this time, so sent to ED for further evaluation. Upon arrival, noted to have blood glucose of 650. Ran out of test strips a few days ago as well as Lantus. Last took on Tuesday or Tuesday. States he has been taking metformin and NovoLog. Last hemoglobin A1c 11.[address] [facility] in August 2023. Smokes 10-0 cigarettes daily. No fever, chills, recent URI, palpitations, shortness of breath, nausea, vomiting, abdominal pain, dysuria, diarrhea or constipation. Admission Exam Per Admitting Provider Physical Exam: General Appearance: WD/WN, vitals as above, NAD, sitting up in bed, pleasant, conversing easily Head: normocephalic, atraumatic Eyes: normal inspection, PERRL, conjunctivae normal, anicteric sclerae ENT: external ear and nose normal, dry mucous membranes of oropharynx Neck: normal visual inspection, trachea midline, no thyromegaly Respiratory: normal respiratory effort, lungs clear to auscultation, no wheeze, rales, rhonchi. No accessory muscle use Cardiovascular: regular rate, rhythm, normal peripheral pulses, no BLE edema. Vessels: no JVD Chest: normal inspection of chest Abdomen/GI: normal bowel sounds, soft, nontender, no hepatosplenomegaly Extremities/Musculoskeletal: no cyanosis or clubbing, extremities motor strength 5/5 Neurologic: PERRL, EOMI, accommodation nl, no face palsy, no dysarthria, CN's II-XI intact bilaterally and moves all extremities Psychiatric: A+Ox3, euthymic affect Skin: no rashes, normal color, warm/dry Principal Diagnosis DKA Discharge Exam sitting at the edge of the bed without any acute distress Constitutional well developed and well nourished; not ill appearing Eyes PERRL, conjunctivae normal, anicteric sclerae ENMT external ear and nose normal, oropharynx normal Neck trachea midline, no thyromegaly Respiratory no respiratory distress Auscultation: lungs clear to auscultation bilaterally Cardiovascular Rate/Rhythm: regular rate and regular rhythm; not tachycardic Heart Sounds: normal S1 and normal S2; no murmur Extremities: no edema Gastrointestinal (Abdomen) Inspection/Auscultation: normal bowel sounds; abdomen not distended Percussion/Palpation: abdomen soft; abdomen nontender Neurologic normal touch/pain/proprioception and moves all extremities; no focal motor deficits Psychiatric A+Ox3, euthymic affect Lymphatic no cervical or axillary lymphadenopathy Discharge Data Allergies Allergy/AdvReac Type Severity Reaction Status Date / Time No Known Allergies Allergy Verified 05/24/23 10:07 Consultations 04/16/24 18:15 ED Decision to Admit Stat Hospital Course (1) DKA (diabetic ketoacidosis): This is a 48-year-old male with PMH of poorly controlled type 2 diabetes, diabetic peripheral neuropathy, acquired hypothyroidism, hyperlipidemia, degenerative disc disease of the lumbosacral spine, history of migraine headaches, bipolar depression, tobacco use and other medical problems listed below who presents with chest pain that developed while at work this afternoon and was found to have DKA. BSG 650 2/2 running out of lantus and testing strips 2 days ago H/o poorly controlled DM II, last a1c in [facility] 11.2 in Aug 2023- repeat in AM VBG pH 7.35, bicarb 18, anion gap 20 Has been on insulin drip, IV fluids, with regular electrolytes monitoring Has been requiring minimal doses of intravenous insulin and will be changed to subcu from this morning Diet has been started He remains free from any symptoms and has been ambulating without any difficulties Appreciate glycemic pharmacist input and recommendation Will start his usual doses of Lantus at home and he will be discharged this afternoon if no other issues (2) Diabetes mellitus, type 2: Has had diabetes education Hemoglobin A1c is high at 13.3 (3) Hypomagnesemia: Mag 1.4, replaced. Monitor Has been replaced (4) Pseudohyponatremia: Na 122 corrects to 133 when accounting for BSG of 650 Continue to monitor Sodium level is minimally low at 132 (5) Chest pain: CP appears atypical in nature, suspect MSK cause as pain originated in neck/across upper back Although patient with significant risk factors for ACS given uncontrolled DM, HTN, HLD, ongoing tobacco use Troponin negative x 2 - continue to trend, monitor on tele overnight EKG with NSR with HR of 96. No acute ST elevation 2D echo given risk factors as above, recurrent CP No more chest pain, palpitation or shortness of breath (6) KIKE (acute kidney injury): Cr 1.84 (baseline ~1.1) in setting of dehydration Expect improvement with correction of BSG, fluid balance Creatinine has been normalized (7) HLD (hyperlipidemia): Continue statin (8) Tobacco use disorder: Smoking 10-20 cigarettes daily Nicotine patch ordered Encourage cessation DVT Ppx: SQ heparin Code status: FULL PCP: [facility] Dispo: Admitted to PCU Will be discharged home this afternoon Total Time Total Time Spent Total Time Spent (In Minutes): 40 minutes Discharge Plan Discharge Items Patient Disposition: Home - Self-Care Reason For Visit: CHEST PAIN,DKA Discharge Diagnosis: DKA Condition on Discharge: Good Activity: Resume your previous activity Non-emergency contact: Primary Care Provider Call non-emergency contact if: you have any medication questions and your symptoms worsen Follow-up/Referrals: Lela Robbins DO [Primary Care Provider] - (Date & Time 04/24/2024 1:10 PM Provider Lela Robbins DO Department Family Medicine [facility] ) Diet: Carb Consistent or DM2 Addtl Attending Provider Instructions: Please take precautions to avoid falls Take your insulin regularly, follow diabetic diet and monitor your blood sugar regularly Strongly advised to quit smoking Please keep appointments with the healthcare providers Pending Studies at Discharge: No Stand-Alone Forms: My [employer], Work/School Release, Smoking Cessation Medications and DC Order Prescriptions: New nicotine 7 mg/24 hr Patch 24 Hour 1 patch transdermal QAM Qty: 30 0RF (DME) FreeStyle Theresa 3 Plus Sensor Device See Rx Instructions .Route Qty: 2 0RF Rx Instructions: Change every 15 days (DME) blood-glucose meter Misc See Rx Instructions .Route Qty: 1 0RF Rx Instructions: As directed (DME) OneTouch Verio test strips Strip See Rx Instructions .Route Qty: 100 0RF Rx Instructions: Test 3 times daily (DME) lancets 33 gauge misc See Rx Instructions .Route Qty: 100 0RF Rx Instructions: test 3 times daily Continued atorvastatin [Lipitor] 40 mg tablet 40 mg PO QAM gabapentin 600 mg tablet 600 mg PO TID aspirin [Adult Aspirin Regimen] 81 mg tablet,delayed release (DR/EC) 81 mg PO QAM metformin 1,000 mg tablet 1,000 mg PO BID Rx Instructions: take with food ibuprofen 800 mg tablet 800 mg PO BID PRN (Reason: pain or fever) rizatriptan 10 mg tablet 10 mg PO DIRECTED MDD 2 tabs PRN (Reason: Migraine Headache) Rx Instructions: take 1 tablet at onset of headache and may repeat in 2 hours if needed. cyanocobalamin (vitamin B-12) [Vitamin B-12] 1,000 mcg Tablet 1,000 mcg PO QAM PNV cmb#95-ferrous fumarate-FA [] 28 mg iron- 800 mcg Tablet 1 tab PO DAILY levothyroxine 50 mcg tablet 50 mcg PO DAILYBB cyclobenzaprine 10 mg tablet 10 mg PO HS PRN (Reason: Muscle Spasm) insulin glargine 100 unit/mL solution 15 unit SUBCUT QAM Qty: 10 0RF Rx Instructions: + Extra to prime pen needle Discharge Orders: Discharge Order (Routine); Ordered 04/17/24 Ordered By: Tash Miller Admission Data Admit Date/Time: 04/16/24 18:18 Attending Provider: Tash Miller Admit Provider: Nnamdi Queen Primary Care Provider: Lela Robbins Other Providers: Nnamdi Queen Other Interventions: Discharge Summary Assessment (RN) Last Done: 04/17/24 16:52
[2024-04-18] MEDS ORDERED: INSULIN ASPART PER UNIT CHARGE SC ONE (02:00)
== END 2024-04-17 17:40 | disposition home or self-care (01) | DRG 638 ==
LOC: ED 16:46 → SUATTDRO 18:18 → 2E 18:18